=== PATIENT | female | born 1965 | race Caucasian/White ===

== ENCOUNTER 2022-11-09 14:30 | Outpatient (RCR) | payer OTHER, SELFPAY ==
--- NOTE | 2022-05-22 13:43 | ST.OP.ACL ---
Visit Care Team Role Provider Type Gema Armenta PA-C Attending Provider Non-Staff Family Provider Primary Care Provider Referring Provider Specialty: Medical Address: [facility] Shannan Mustafa, [facility] [address], [place], [address] Email: Adult Cognitive Linguistic Evaluation CHIEF WHARFINGER Adult Cognitive Linguistic Eval Start: 05/22/22 12:47 Freq: Status: Active Protocol: Document 05/22/22 12:47 CG (Rec: 05/22/22 13:42 CG [id number]) Adult Cognitive Linguistic Evaluation Session Time Visit Start Time 09:33 Visit Stop Time 10:38 Total Visit Minutes 65 Visit Information Visit Number 1 Plan of Care Dates 05/22/22-08/22/22 Insurance Information [place] Referral Referring Provider eGma Armenta PA-C Reason for Referral Aphasia following CVA Setting Assessment Location Outpatient Care Visit Type Note Type Initial evaluation Next Note Type Next Note Type Treatment Note Patient Information Identification Type Name Patient History Michelle is a pleasant 56 year old female who was admitted to the hospital on 04/29/22 for a stroke. Initially, she was unable to communicate at all and states she could not make sense of what I was thinking. Since her discharge from the hospital on 05/02/22, her speech has progressed such that she is now able to communicate basic wants and needs. 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 She reports that she uses some compensatory strategies at home, including description/ circumlocution and writing or texting rather than speaking in order to allow for more processing timw. She has been working through Aphasia workbooks at home that she ordered on [employer], and her daughter and niece state that she has a tendency to try to complete these exercises all day to the point of frustration. She also reports that her aphasia worsens later in the day. Though Michelle expresses frustration with her speech, she says that it does not cause embarassment because she is simply motivated to recover and push through the word-finding difficulties. 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 Mental Status Alert,Responsive,Cooperative Assessment Oral Motor Examination Completed No: Oral motor structure and function appear WFL for speech /swallowing Informal Assessment Receptive Language Normal Yes Receptive Language Impairment(s) Comprehension of simple yes/no questions,Comprehension of complex yes/no questions, Following 2-step commands, Picture/Object identification, Comprehension of conversation Expressive Language Normal No: Phonemic paraphasias Expressive Language Impairment(s) Imitation,Confrontation naming ,Expression of complex thoughts/ideas Pragmatic Language Normal Yes Speech Normal No Speech Impairment(s) Imprecise articulation Cognition Normal Yes Formal Assessment Standardized Test/Screener Type Quick Aphasia Battery (QAB) Administration Complete Results Both the Quick Aphasia Battery and the Naylor Naming Test ( Short Form) were completed. On the Quick Aphasia Battery, the patient scored as follows: Word comprehension -100% Sentence comprehension- 83.3% Word finding- 27.5% Grammatical construction- 57.5 % Speech motor programming- 0.00 % Repetition-66.7% Reading-45.8% QAB overall-5.76. The creators of the QAB indicate that scores between 5 .00?7.49 are considered moderate. On the Naylor Naming Test ( Short Form), the pt scored a 5 /15 (33%), with phonemic paraphasias present in 67% of items administered, Findings/Results Language Function Moderately-severely impaired Cognitive Function Within functional limits Findings Pt presents with moderate- severe aphasia. 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 The pt's speech is primarily characterized by phonemic paraphasias, dysfluency, and apraxia (motor planning deficits), though semantic paraphasias are also present. Cognitive Communication Deficits Self-awareness of Cognitive- Predictive awareness (able to Communication Deficits predict problem; impact of impairments) Impact on Functioning Activity Limits/Particip.Rest. Mild: General Tasks and Demands Household Tasks Sev: Interpersonal Interactions Education Employment Community Safety Risks Mild: Being Left Alone at Home Managing Medication Mod: Reacting to Emergency Traveling Alone in Community Prognosis Prognosis Good Based on Cognitive status,Family support,Time since onset,Other (comment) Comment High PLOF, age Plan of Care Speech-Language Treatment Yes Frequency 1-2x/week Duration 45 min Patient/Caregiver Education Described results of evaluation,Patient expressed understanding of evaluation, Patient expressed agreement with goals and treatment plans ,Family/caregivers expressed understanding of evaluation, Family/caregivers expressed agreement with goals and treatment plan,Patient requires further education/ training,Family/caregivers require further education/ training Short Term Goals 1. Pt and family will benefit from education regarding aphasia and stroke recovery. 2. Pt will complete exercises to facilitate word finding with 75% accuracy given minimal verbal cues. 3. Pt will complete confrontation naming tasks with 50% accuracy given maximal visual and verbal cues . Financial Analyst Goals Pt will complete confronation naming tasks with 80% accuracy independently. Pt will increase functional speech/language skills to WFL in order to communicate complex thoughts and ideas as well as basic wants/needs, and in order to return to OF. Discharge Recommendations Home
--- NOTE | 2022-05-22 13:43 | ST.OPPOC ---
Physical, Occupational & Speech Therapy At [facility] Visit Care Team Role Provider Type Gema Armenta PA-C Attending Provider Non-Staff Family Provider Primary Care Provider Referring Provider Address: [address], [place], [address] Speech Pathology Plan of Care Plan of Care Dates 05/22/22-08/22/22 Referring Provider Gema Armenta PA-C Patient History Michelle is a pleasant 56 year old female who was admitted to the hospital on 04/29/22 for a stroke. Initially, she was unable to communicate at all and states she could not make sense of what I was thinking. Since her discharge from the hospital on 05/02/22, her speech has progressed such that she is now able to communicate basic wants and needs. Her daughter and niece, who were present at her evaluation, stated that she frequently tries to say a word but uses the wrong sound (phonemic paraphasias). She reports that she uses some compensatory strategies at home, including description/circumlocution and writing or texting rather than speaking in order to allow for more processing timw. She has been working through Aphasia workbooks at home that she ordered on [employer], and her daughter and niece state that she has a tendency to try to complete these exercises all day to the point of frustration. She also reports that her aphasia worsens later in the day. Though Michelle expresses frustration with her speech, she says that it does not cause embarassment because she is simply motivated to recover and push through the word-finding difficulties. Self-awareness of Cognitive- Predictive awareness (abl Communication Deficits General Tasks and Demands Mild Household Tasks Mild Interpersonal Interactions Severe Education Severe Employment Severe Community Severe Being Left Alone at Home Mild Reacting to Emergency Moderate Managing Medication Mild Traveling Alone in Community Moderate Short Term Goals 1. Pt and family will benefit from education regarding aphasia and stroke recovery. 2. Pt will complete exercises to facilitate word finding with 75% accuracy given minimal verbal cues. 3. Pt will complete confrontation naming tasks with 50% accuracy given maximal visual and verbal cues. Nursing Home Goals Pt will complete confronation naming tasks with 80% accuracy independently. Pt will increase functional speech/language skills to WFL in order to communicate complex thoughts and ideas as well as basic wants/needs, and in order to return to [facility]. Comment: Electronically Signed by: ANU James 05/22/22 [id number] If you are in agreement with this Plan of Care, please return a signed and dated copy. I have reviewed this Plan of Care and certify that the skilled therapy services above are required to meet the patient?s needs. Physician Signature Date Printed Name and Credentials Clinical Instructor Signature Printed Name and Credentials
--- NOTE | 2022-06-02 16:30 | ST.OPTN ---
Visit Care Team Role Provider Type Gema Armenta PA-C Attending Provider Non-Staff Family Provider Primary Care Provider Referring Provider Address: [facility] Shannan Mustafa, [address] [address], [place], [address] UTILIZATION ENGINEER Treatment Note UTILIZATION ENGINEER Treatment Note Start: 06/02/22 16:17 Freq: Status: Active Protocol: Document 06/02/22 16:17 CG (Rec: 06/02/22 16:30 CG [id number]) Speech Pathology Treatment Note Session Time Visit Start Time 15:30 Visit Stop Time 16:15 Total Visit Minutes 45 Visit Information Plan of Care Dates 05/22/22-08/22/22 Setting Treatment Setting Outpatient Care Next Note Type Next Note Type Treatment Note General Information Patient History Michelle is a pleasant 56 year old female who was admitted to the hospital on 04/29/22 for a stroke. Initially, she was unable to communicate at all and states she could not make sense of what I was thinking. Since her discharge from the hospital on 05/02/22, her speech has progressed such that she is now able to communicate basic wants and needs. 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 She reports that she uses some compensatory strategies at home, including description/ circumlocution and writing or texting rather than speaking in order to allow for more processing timw. She has been working through Aphasia workbooks at home that she ordered on [employer], and her daughter and niece state that she has a tendency to try to complete these exercises all day to the point of frustration. She also reports that her aphasia worsens later in the day. Though Michelle expresses frustration with her speech, she says that it does not cause embarassment because she is simply motivated to recover and push through the word-finding difficulties. Subjective Identification Type Name Observations/Patient Presentation Pt attended the session with her daughter, who remained present throughout. She appeared well and was alert, oriented, and cooperative. Chief Complaint(s) Language Patient Knowledge/Awareness of UTILIZATION ENGINEER Role Excellent in Treatment Objective Short Term Goals 1. Pt and family will benefit from education regarding aphasia and stroke recovery. 2. Pt will complete exercises to facilitate word finding with 75% accuracy given minimal verbal cues. 3. Pt will complete confrontation naming tasks with 50% accuracy given maximal visual and verbal cues . Longterm Goals Pt will complete confronation naming tasks with 80% accuracy independently. Pt will increase functional speech/language skills to WFL in order to communicate complex thoughts and ideas as well as basic wants/needs, and in order to return to PLOF. Treatment Activities Session initiated with UTILIZATION ENGINEER providing communication partner training and providing literature re communication partner tips. UTILIZATION ENGINEER introduced [employer]a shirin for pt to use for home practice, and explained graded cueing heirarchy. Additionally, began instruction in Phonological Component Analysis (OPERATING ROOM MANAGER) for word- finding. Gave recommendations for home practice and self- cueing at home, including using a whiteboard and dry erase marker to self-cue words and decrease frustration. Additionally, advised pt to begin using [employer] shirin for home practice. Assessment Patient Response to Treatment Excellent Rehab Potential Excellent Impairments Identified Expressive language Progress Towards Goals Excellent Progress Assessment of Overall Progress Improving Assessment of Improvement Pt's connected speech already appears improved since initial evaluation, likely resulting from a mixture of spontaneous recovery and home practice. She was able to complete confrontation OPERATING ROOM MANAGER activities with approximately 50% accuracy given minimal verbal cues, increasing to 75% accuracy given moderate cues. She expressed compliance with home exercise program and use of whiteboard to self-cue. Pt's daughter expressed understanding of communication partner training. Reviewed with Patient Progress Being Made,Home Exercise Program Patient/Caregiver Understanding Excellent Plan Amount of Therapy Recommended 3-4 Months Frequency of Treatment Twice a Week Length of Session 45 Minutes Treatment Emphasis Next Session Continue OPERATING ROOM MANAGER Therapeutic Contents Expressive Language Training Additional Areas of Treatment Family education/training Provided Patient/Caregiver Instruction Home Exercise Program Therapy Recommendations Continue with Current Program
--- NOTE | 2022-06-09 17:13 | ST.OPTN ---
Visit Care Team Role Provider Type Gema Armenta PA-C Attending Provider Non-Staff Family Provider Primary Care Provider Referring Provider Address: [facility] Shannan Mustafa, [address] [address], [place], [address] MENTAL HEALTH ORDERLY Treatment Note MENTAL HEALTH ORDERLY Treatment Note Start: 06/02/22 16:17 Freq: Status: Active Protocol: Document 06/09/22 16:25 CG (Rec: 06/09/22 16:31 CG [id number]) Speech Pathology Treatment Note Session Time Visit Start Time 15:30 Visit Stop Time 16:23 Total Visit Minutes 53 Visit Information Plan of Care Dates 05/22/22-08/22/22 Setting Treatment Setting Outpatient Care Next Note Type Next Note Type Treatment Note General Information Patient History Michelle is a pleasant 56 year old female who was admitted to the hospital on 04/29/22 for a stroke. Initially, she was unable to communicate at all and states she could not make sense of what I was thinking. Since her discharge from the hospital on 05/02/22, her speech has progressed such that she is now able to communicate basic wants and needs. 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 She reports that she uses some compensatory strategies at home, including description/ circumlocution and writing or texting rather than speaking in order to allow for more processing timw. She has been working through Aphasia workbooks at home that she ordered on [employer], and her daughter and niece state that she has a tendency to try to complete these exercises all day to the point of frustration. She also reports that her aphasia worsens later in the day. Though Michelle expresses frustration with her speech, she says that it does not cause embarassment because she is simply motivated to recover and push through the word-finding difficulties. Subjective Identification Type Name Observations/Patient Presentation Pt attended the session with her sister, who remained present throughout. She appeared well and was alert, oriented, and cooperative. Chief Complaint(s) Language Patient Knowledge/Awareness of MENTAL HEALTH ORDERLY Role Excellent in Treatment Objective Short Term Goals 1. Pt and family will benefit from education regarding aphasia and stroke recovery. 2. Pt will complete exercises to facilitate word finding with 75% accuracy given minimal verbal cues. 3. Pt will complete confrontation naming tasks with 50% accuracy given maximal visual and verbal cues . Manager Occupational Goals Pt will complete confronation naming tasks with 80% accuracy independently. Pt will increase functional speech/language skills to WFL in order to communicate complex thoughts and ideas as well as basic wants/needs, and in order to return to PLOF. Treatment Activities MENTAL HEALTH ORDERLY initiated session with check-in of at-home practice. Pt states she is using the Mintigo shirin everyday for practice. She states she uses a whiteboard at home for self- cueing and for decreasing frustration during communication. Continued instruction in Phonological Component Analysis (PRINTER APPRENTICE) for word-finding, followed by confrontation naming of practiced words. Initiated instruction in Semantic Feature Analysis (SFA) for word-finding via strengthened semantic network. Assessment Patient Response to Treatment Excellent Rehab Potential Excellent Impairments Identified Expressive language Progress Towards Goals Excellent Progress Assessment of Overall Progress Improving Assessment of Improvement Pt's connected speech continues to improve based on MENTAL HEALTH ORDERLY observation. She was able to complete confrontation naming following PRINTER APPRENTICE activities with 86% accuracy independently. She completed SFA activities with approximately 50% accuracy independently. She expressed compliance with home exercise program and use of whiteboard to self-cue. Additionally, she followed up with PCP regarding lack of sleep and will be adding melatonin at night with the goal of improving sleep quality/ duration. Reviewed with Patient Progress Being Made,Home Exercise Program Patient/Caregiver Understanding Excellent Plan Amount of Therapy Recommended 3-4 Months Frequency of Treatment Twice a Week Length of Session 45 Minutes Treatment Emphasis Next Session Continue PRINTER APPRENTICE Therapeutic Contents Expressive Language Training Additional Areas of Treatment Family education/training Provided Patient/Caregiver Instruction Home Exercise Program Therapy Recommendations Continue with Current Program
--- NOTE | 2022-06-16 17:22 | ST.OPTN ---
Visit Care Team Role Provider Type Gema Armenta PA-C Attending Provider Non-Staff Family Provider Primary Care Provider Referring Provider Address: [facility] Shannan Mustafa, [address] [address], [place], [address] FINANCIAL DIRECTOR Treatment Note FINANCIAL DIRECTOR Treatment Note Start: 06/02/22 16:17 Freq: Status: Active Protocol: Document 06/16/22 16:18 CG (Rec: 06/16/22 16:23 CG [id number]) Speech Pathology Treatment Note Session Time Visit Start Time 09:30 Visit Stop Time 10:15 Total Visit Minutes 45 Visit Information Visit Number 5 Plan of Care Dates 05/22/22-08/22/22 Setting Treatment Setting Outpatient Care Next Note Type Next Note Type Treatment Note General Information Patient History Michelle is a pleasant 56 year old female who was admitted to the hospital on 04/29/22 for a stroke. Initially, she was unable to communicate at all and states she could not make sense of what I was thinking. Since her discharge from the hospital on 05/02/22, her speech has progressed such that she is now able to communicate basic wants and needs. 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 She reports that she uses some compensatory strategies at home, including description/ circumlocution and writing or texting rather than speaking in order to allow for more processing timw. She has been working through Aphasia workbooks at home that she ordered on [employer], and her daughter and niece state that she has a tendency to try to complete these exercises all day to the point of frustration. She also reports that her aphasia worsens later in the day. Though Michelle expresses frustration with her speech, she says that it does not cause embarassment because she is simply motivated to recover and push through the word-finding difficulties. Subjective Identification Type Name Observations/Patient Presentation Pt attended the session with her daughters, who remained present throughout. She appeared well and was alert, oriented, and cooperative. She states she did get good sleep last night, but will be discontinuing melatonin because it was causing strange dreams. Pt was encouraged to continue collaborating with her doctor regarding sleep. Chief Complaint(s) Language Patient Knowledge/Awareness of FINANCIAL DIRECTOR Role Excellent in Treatment Objective Short Term Goals 1. Pt and family will benefit from education regarding aphasia and stroke recovery. 2. Pt will complete exercises to facilitate word finding with 75% accuracy given minimal verbal cues. 3. Pt will complete confrontation naming tasks with 50% accuracy given maximal visual and verbal cues . Preservationist Goals Pt will complete confronation naming tasks with 80% accuracy independently. Pt will increase functional speech/language skills to WFL in order to communicate complex thoughts and ideas as well as basic wants/needs, and in order to return to [facility]. Treatment Activities Continued instruction in Semantic Feature Analysis (SFA ) for word-finding via strengthened semantic network, with graded cueing for word- finding including the use of whiteboard and first letter for self-cue. Additionally, FINANCIAL DIRECTOR provided syllable-by- syllable cues for target words due to pt difficulty with multisyllabic words, which reduced frustration and facilitated word retrieval. Sentence completion task with semantic cues were completed. Provided continued counseling regarding pursuing outside tx for sleep disturbances. Assessment Patient Response to Treatment Excellent Rehab Potential Excellent Impairments Identified Expressive language Progress Towards Goals Excellent Progress Assessment of Overall Progress Improving Assessment of Improvement Pt's connected speech continues to improve based on FINANCIAL DIRECTOR observation, with pt only pausing once or twice during a fluent conversation at the beginning of the session today . She completed SFA activities with approximately 80% accuracy today given minimal verbal cues. After SFA activities, she completed confrontation naming activities given semantic cues (fill in the blank sentences) with 85% (34/40) accuracy independently. She expressed compliance with home exercise program and use of whiteboard to self-cue, and is continuing [employer] shirin. Reviewed with Patient Progress Being Made,Home Exercise Program Patient/Caregiver Understanding Excellent Plan Amount of Therapy Recommended 3-4 Months Frequency of Treatment Twice a Week Length of Session 45 Minutes Treatment Emphasis Next Session Continue CIVIL DEFENSE DIRECTOR and SFA Therapeutic Contents Expressive Language Training Provided Patient/Caregiver Instruction Home Exercise Program Therapy Recommendations Continue with Current Program
--- NOTE | 2022-06-19 10:51 | ST.OPTN ---
Visit Care Team Role Provider Type Gema Armenta PA-C Attending Provider Non-Staff Family Provider Primary Care Provider Referring Provider Address: [facility] Shannan Mustafa, [address] [address], [place], [address] HABILITATIVE INTERVENTIONIST Treatment Note HABILITATIVE INTERVENTIONIST Treatment Note Start: 06/02/22 16:17 Freq: Status: Active Protocol: Document 06/19/22 10:45 CG (Rec: 06/19/22 10:51 CG [id number]) Speech Pathology Treatment Note Session Time Visit Start Time 09:30 Visit Stop Time 10:22 Total Visit Minutes 52 Visit Information Visit Number 6 Plan of Care Dates 05/22/22-08/22/22 Setting Treatment Setting Outpatient Care Next Note Type Next Note Type Treatment Note General Information Patient History Michelle is a pleasant 56 year old female who was admitted to the hospital on 04/29/22 for a stroke. Initially, she was unable to communicate at all and states she could not make sense of what I was thinking. Since her discharge from the hospital on 05/02/22, her speech has progressed such that she is now able to communicate basic wants and needs. 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 She reports that she uses some compensatory strategies at home, including description/ circumlocution and writing or texting rather than speaking in order to allow for more processing timw. She has been working through Aphasia workbooks at home that she ordered on [employer], and her daughter and niece state that she has a tendency to try to complete these exercises all day to the point of frustration. She also reports that her aphasia worsens later in the day. Though Michelle expresses frustration with her speech, she says that it does not cause embarassment because she is simply motivated to recover and push through the word-finding difficulties. Subjective Identification Type Name Observations/Patient Presentation Pt attended the session independently today after being dropped off by her brother in law. She was alert , oriented, pleasant, and cooperative throughout the session. Chief Complaint(s) Language Patient Knowledge/Awareness of HABILITATIVE INTERVENTIONIST Role Excellent in Treatment Objective Short Term Goals 1. Pt and family will benefit from education regarding aphasia and stroke recovery. 2. Pt will complete exercises to facilitate word finding with 75% accuracy given minimal verbal cues. 3. Pt will complete confrontation naming tasks with 50% accuracy given maximal visual and verbal cues . Career Specialist Goals Pt will complete confronation naming tasks with 80% accuracy independently. Pt will increase functional speech/language skills to WFL in order to communicate complex thoughts and ideas as well as basic wants/needs, and in order to return to PLOF. Treatment Activities Assessed progress with Short Form of [place] Naming Test as progress monitoring probe. Continued instruction in Semantic Feature Analysis (SFA ) for word-finding via strengthened semantic network, with graded cueing for word- finding including the use of whiteboard and first letter for self-cue. Additionally, HABILITATIVE INTERVENTIONIST provided syllable-by- syllable cues for target words due to pt difficulty with multisyllabic words, which reduced frustration and facilitated word retrieval. Assessment Patient Response to Treatment Excellent Rehab Potential Excellent Impairments Identified Expressive language Progress Towards Goals Excellent Progress Assessment of Overall Progress Improving Assessment of Improvement Pt's score on Short Form of [place] Naming test increased from 5/15 at evaluation to 7/ 15 this date. Additionally, the test took a much shorter amount of time to complete than during evaluation, as the pt was able to produce target words with many fewer cues this date. This improvement is not reflected in the numerical score, but does have significant implications for reducing frustration and increasing QOL. Pt's connected speech continues to improve based on HABILITATIVE INTERVENTIONIST observation. Pt completed SFA activities with 67% accuracy independently, increasing to 87% accuracy given minimal visual cues. She expressed continued compliance with home exercise program and use of whiteboard to self-cue. Reviewed with Patient Progress Being Made,Home Exercise Program Patient/Caregiver Understanding Excellent Plan Amount of Therapy Recommended 3-4 Months Frequency of Treatment Twice a Week Length of Session 45 Minutes Treatment Emphasis Next Session Continue SHIFT FOREMAN and SFA Therapeutic Contents Expressive Language Training Provided Patient/Caregiver Instruction Home Exercise Program Therapy Recommendations Continue with Current Program
--- NOTE | 2022-06-23 16:27 | ST.OPTN ---
Visit Care Team Role Provider Type Gema Armenta PA-C Attending Provider Non-Staff Family Provider Primary Care Provider Referring Provider Address: [facility] Shannan Mustafa, [address] [address], [place], [address] COMMERCIAL PARTS PROFESSIONAL Treatment Note COMMERCIAL PARTS PROFESSIONAL Treatment Note Start: 06/02/22 16:17 Freq: Status: Active Protocol: Document 06/23/22 16:23 CG (Rec: 06/23/22 16:27 CG [id number]) Speech Pathology Treatment Note Session Time Visit Start Time 09:30 Visit Stop Time 10:22 Total Visit Minutes 52 Visit Information Visit Number 7 Plan of Care Dates 05/22/22-08/22/22 Setting Treatment Setting Outpatient Care Next Note Type Next Note Type Treatment Note General Information Patient History Michelle is a pleasant 56 year old female who was admitted to the hospital on 04/29/22 for a stroke. Initially, she was unable to communicate at all and states she could not make sense of what I was thinking. Since her discharge from the hospital on 05/02/22, her speech has progressed such that she is now able to communicate basic wants and needs. 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 She reports that she uses some compensatory strategies at home, including description/ circumlocution and writing or texting rather than speaking in order to allow for more processing timw. She has been working through Aphasia workbooks at home that she ordered on [employer], and her daughter and niece state that she has a tendency to try to complete these exercises all day to the point of frustration. She also reports that her aphasia worsens later in the day. Though Michelle expresses frustration with her speech, she says that it does not cause embarassment because she is simply motivated to recover and push through the word-finding difficulties. Subjective Identification Type Name Observations/Patient Presentation Pt attended the session independently today after being dropped off by her daughter. She was alert, oriented, pleasant, and cooperative throughout the session. Chief Complaint(s) Language Patient Knowledge/Awareness of COMMERCIAL PARTS PROFESSIONAL Role Excellent in Treatment Objective Short Term Goals 1. Pt and family will benefit from education regarding aphasia and stroke recovery. 2. Pt will complete exercises to facilitate word finding with 75% accuracy given minimal verbal cues. 3. Pt will complete confrontation naming tasks with 50% accuracy given maximal visual and verbal cues . Long-Term Goals Pt will complete confronation naming tasks with 80% accuracy independently. Pt will increase functional speech/language skills to WFL in order to communicate complex thoughts and ideas as well as basic wants/needs, and in order to return to PLOF. Treatment Activities Continued instruction in Semantic Feature Analysis (SFA ) for word-finding via strengthened semantic network, with graded cueing for word- finding including the use of whiteboard and first letter for self-cue. Additionally, COMMERCIAL PARTS PROFESSIONAL provided syllable-by- syllable cues for target words due to pt difficulty with multisyllabic words, which reduced frustration and facilitated word retrieval. Encouraged visualization of first letter as a strategy to facilitate accurate motor planning. Assessment Patient Response to Treatment Excellent Rehab Potential Excellent Impairments Identified Expressive language Progress Towards Goals Excellent Progress Assessment of Overall Progress Improving Assessment of Improvement Pt's connected speech continues to improve based on COMMERCIAL PARTS PROFESSIONAL observation. Pt completed SFA activities with 82% accuracy independently, increasing to 97% accuracy given minimal visual cues, demonstrating a continued improvement since treatment initiated. She expressed continued compliance with home exercise program and use of whiteboard to self-cue. She states she is still frustrated and wants to fix [her] brain , but acknowledges she has come a long way in the two months since her stroke. Reviewed with Patient Progress Being Made,Home Exercise Program Patient/Caregiver Understanding Excellent Plan Amount of Therapy Recommended 3-4 Months Frequency of Treatment Twice a Week Length of Session 45 Minutes Treatment Emphasis Next Session Continue PRESSURE TESTER and SFA Therapeutic Contents Expressive Language Training Provided Patient/Caregiver Instruction Home Exercise Program Therapy Recommendations Continue with Current Program
--- NOTE | 2022-06-26 10:49 | ST.OPTN ---
Visit Care Team Role Provider Type Gema Armenta PA-C Attending Provider Non-Staff Family Provider Primary Care Provider Referring Provider Address: [facility] Shannan Mustafa, [address] [address], [place], [address] FOREIGN COLLECTION CLERK Treatment Note FOREIGN COLLECTION CLERK Treatment Note Start: 06/02/22 16:17 Freq: Status: Active Protocol: Document 06/26/22 10:45 CG (Rec: 06/26/22 10:49 CG [id number]) Speech Pathology Treatment Note Session Time Visit Start Time 09:30 Visit Stop Time 10:22 Total Visit Minutes 52 Visit Information Visit Number 8 Plan of Care Dates 05/22/22-08/22/22 Setting Treatment Setting Outpatient Care Next Note Type Next Note Type Treatment Note General Information Patient History Michelle is a pleasant 56 year old female who was admitted to the hospital on 04/29/22 for a stroke. Initially, she was unable to communicate at all and states she could not make sense of what I was thinking. Since her discharge from the hospital on 05/02/22, her speech has progressed such that she is now able to communicate basic wants and needs. 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 She reports that she uses some compensatory strategies at home, including description/ circumlocution and writing or texting rather than speaking in order to allow for more processing timw. She has been working through Aphasia workbooks at home that she ordered on [employer], and her daughter and niece state that she has a tendency to try to complete these exercises all day to the point of frustration. She also reports that her aphasia worsens later in the day. Though Michelle expresses frustration with her speech, she says that it does not cause embarassment because she is simply motivated to recover and push through the word-finding difficulties. Subjective Identification Type Name Observations/Patient Presentation Pt attended the session independently today after being dropped off by her friend. She was alert, oriented, pleasant, and cooperative throughout the session. Chief Complaint(s) Language Patient Knowledge/Awareness of FOREIGN COLLECTION CLERK Role Excellent in Treatment Objective Short Term Goals 1. Pt and family will benefit from education regarding aphasia and stroke recovery. 2. Pt will complete exercises to facilitate word finding with 75% accuracy given minimal verbal cues. 3. Pt will complete confrontation naming tasks with 50% accuracy given maximal visual and verbal cues . Snf Goals Pt will complete confronation naming tasks with 80% accuracy independently. Pt will increase functional speech/language skills to WFL in order to communicate complex thoughts and ideas as well as basic wants/needs, and in order to return to PLOF. Treatment Activities Word description game to promote use of semantic network for functionl language . Continued instruction in Semantic Feature Analysis (SFA ) for word-finding via strengthened semantic network, with graded cueing for word- finding including the use of whiteboard and first letter for self-cue. Additionally, FOREIGN COLLECTION CLERK provided syllable-by- syllable cues for target words due to pt difficulty with multisyllabic words, which reduced frustration and facilitated word retrieval. Assessment Patient Response to Treatment Excellent Rehab Potential Excellent Impairments Identified Expressive language Progress Towards Goals Excellent Progress Assessment of Overall Progress Improving Assessment of Improvement Pt's connected speech continues to improve based on FOREIGN COLLECTION CLERK observation. Pt completed SFA activities with 78% accuracy independently, increasing to 100% accuracy given minimal visual cues, demonstrating a sustained improvement since treatment initiated. Confrontation naming of everyday items was completed with 78% accuracy independently, increasing to 93% accuracy given mod visual and verbal cues. Overall, pt's word finding, motor planning, and overall communicative abilities continue to improve. Reviewed with Patient Progress Being Made Patient/Caregiver Understanding Excellent Plan Amount of Therapy Recommended 3-4 Months Frequency of Treatment Twice a Week Length of Session 45 Minutes Treatment Emphasis Next Session Continue PROCUREMENT SERVICES MANAGER and SFA Therapeutic Contents Expressive Language Training Provided Patient/Caregiver Instruction Home Exercise Program Therapy Recommendations Continue with Current Program
--- NOTE | 2022-07-03 11:46 | ST.OPTN ---
Visit Care Team Role Provider Type Gema Armenta PA-C Attending Provider Non-Staff Family Provider Primary Care Provider Referring Provider Address: [facility] Shannan Mustafa, [address] [address], [place], [address] THIRD COOK Treatment Note THIRD COOK Treatment Note Start: 06/02/22 16:17 Freq: Status: Active Protocol: Document 06/30/22 11:29 CG (Rec: 07/03/22 11:35 CG [id number]) Speech Pathology Treatment Note Session Time Visit Start Time 15:30 Visit Stop Time 16:15 Total Visit Minutes 45 Visit Information Visit Number 9 Plan of Care Dates 05/22/22-08/22/22 Setting Treatment Setting Outpatient Care Visit Type Note Type Treatment Note Next Note Type Next Note Type Treatment Note General Information Patient History Michelle is a pleasant 56 year old female who was admitted to the hospital on 04/29/22 for a stroke. Initially, she was unable to communicate at all and states she could not make sense of what I was thinking. Since her discharge from the hospital on 05/02/22, her speech has progressed such that she is now able to communicate basic wants and needs. 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 She reports that she uses some compensatory strategies at home, including description/ circumlocution and writing or texting rather than speaking in order to allow for more processing timw. She has been working through Aphasia workbooks at home that she ordered on [employer], and her daughter and niece state that she has a tendency to try to complete these exercises all day to the point of frustration. She also reports that her aphasia worsens later in the day. Though Michelle expresses frustration with her speech, she says that it does not cause embarassment because she is simply motivated to recover and push through the word-finding difficulties. Subjective Identification Type Name Observations/Patient Presentation Pt attended the session independently with her daughter. She was alert, oriented, pleasant, and cooperative throughout the session. Chief Complaint(s) Language Patient Knowledge/Awareness of THIRD COOK Role Excellent in Treatment Objective Short Term Goals 1. Pt and family will benefit from education regarding aphasia and stroke recovery. 2. Pt will complete exercises to facilitate word finding with 75% accuracy given minimal verbal cues. 3. Pt will complete confrontation naming tasks with 50% accuracy given maximal visual and verbal cues . Polysomnograph Tech Goals Pt will complete confronation naming tasks with 80% accuracy independently. Pt will increase functional speech/language skills to WFL in order to communicate complex thoughts and ideas as well as basic wants/needs, and in order to return to PLOF. Treatment Activities Word description game to promote use of semantic network for functionl language . Continued instruction in Semantic Feature Analysis (SFA ) for word-finding via strengthened semantic network, with graded cueing for word- finding including the use of whiteboard and first letter for self-cue. Additionally, THIRD COOK provided syllable-by- syllable cues for target words due to pt difficulty with multisyllabic words, which reduced frustration and facilitated word retrieval. Assessment Patient Response to Treatment Excellent Rehab Potential Excellent Impairments Identified Expressive language Progress Towards Goals Excellent Progress Assessment of Overall Progress Improving Assessment of Improvement Pt's connected speech continues to improve based on THIRD COOK observation. Pt completed SFA activities with 78% accuracy independently, increasing to 100% accuracy given minimal visual cues, demonstrating a sustained improvement since treatment initiated. Confrontation naming of everyday items was completed with 78% accuracy independently, increasing to 93% accuracy given mod visual and verbal cues. Overall, pt's word finding, motor planning, and overall communicative abilities continue to improve. Reviewed with Patient Progress Being Made Patient/Caregiver Understanding Excellent Plan Amount of Therapy Recommended 3-4 Months Frequency of Treatment Twice a Week Length of Session 45 Minutes Treatment Emphasis Next Session Continue PUMP STITCHER and SFA Therapeutic Contents Expressive Language Training Provided Patient/Caregiver Instruction Home Exercise Program Therapy Recommendations Continue with Current Program
--- NOTE | 2022-07-03 11:49 | ST.OPTN ---
Visit Care Team Role Provider Type Gema Armenta PA-C Attending Provider Non-Staff Family Provider Primary Care Provider Referring Provider Address: [facility] Shannan Mustafa, [address] [address], [place], [address] PHYSICIAN OFFICE REP Treatment Note PHYSICIAN OFFICE REP Treatment Note Start: 06/02/22 16:17 Freq: Status: Active Protocol: Document 07/03/22 11:46 CG (Rec: 07/03/22 11:49 CG [id number]) Speech Pathology Treatment Note Session Time Visit Start Time 09:32 Visit Stop Time 10:22 Total Visit Minutes 50 Visit Information Visit Number 10 Plan of Care Dates 05/22/22-08/22/22 Setting Treatment Setting Outpatient Care Visit Type Note Type Treatment Note Next Note Type Next Note Type Treatment Note General Information Patient History Michelle is a pleasant 56 year old female who was admitted to the hospital on 04/29/22 for a stroke. Initially, she was unable to communicate at all and states she could not make sense of what I was thinking. Since her discharge from the hospital on 05/02/22, her speech has progressed such that she is now able to communicate basic wants and needs. 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 She reports that she uses some compensatory strategies at home, including description/ circumlocution and writing or texting rather than speaking in order to allow for more processing timw. She has been working through Aphasia workbooks at home that she ordered on [employer], and her daughter and niece state that she has a tendency to try to complete these exercises all day to the point of frustration. She also reports that her aphasia worsens later in the day. Though Michelle expresses frustration with her speech, she says that it does not cause embarassment because she is simply motivated to recover and push through the word-finding difficulties. Subjective Identification Type Name Observations/Patient Presentation Pt attended the session independently with her daughter. She was alert, oriented, pleasant, and cooperative throughout the session. Chief Complaint(s) Language Patient Knowledge/Awareness of PHYSICIAN OFFICE REP Role Excellent in Treatment Objective Short Term Goals 1. Pt and family will benefit from education regarding aphasia and stroke recovery. 2. Pt will complete exercises to facilitate word finding with 75% accuracy given minimal verbal cues. 3. Pt will complete confrontation naming tasks with 50% accuracy given maximal visual and verbal cues . Snf Goals Pt will complete confronation naming tasks with 80% accuracy independently. Pt will increase functional speech/language skills to WFL in order to communicate complex thoughts and ideas as well as basic wants/needs, and in order to return to PLOF. Treatment Activities Word description game to promote use of semantic network for functionl language . Continued instruction in Semantic Feature Analysis (SFA ) for word-finding via strengthened semantic network, with graded cueing for word- finding including the use of whiteboard and first letter for self-cue. Additionally, PHYSICIAN OFFICE REP provided syllable-by- syllable cues for target words due to pt difficulty with multisyllabic words, which reduced frustration and facilitated word retrieval. Assessment Patient Response to Treatment Excellent Rehab Potential Excellent Impairments Identified Expressive language Progress Towards Goals Excellent Progress Assessment of Overall Progress Improving Assessment of Improvement Pt's connected speech continues to improve based on PHYSICIAN OFFICE REP observation. Pt completed SFA activities with 73% accuracy independently, increasing to 92% accuracy given minimal visual cues, demonstrating a sustained improvement since treatment initiated. Confrontation naming of everyday items was completed with approximately 50% accuracy this date. Pt's performance today was likely impacted by lack of sleep. Pt states she frequently struggles to get more than 2-3 hours of sleep, and notices the change in her language abilities after a night of little sleep. Reviewed with Patient Progress Being Made Patient/Caregiver Understanding Excellent Plan Amount of Therapy Recommended 3-4 Months Frequency of Treatment Twice a Week Length of Session 45 Minutes Treatment Emphasis Next Session Continue MEDICAL ART THERAPIST and SFA Therapeutic Contents Expressive Language Training Provided Patient/Caregiver Instruction Home Exercise Program Therapy Recommendations Continue with Current Program
--- NOTE | 2022-07-07 16:28 | ST.OPTN ---
Visit Care Team Role Provider Type Gema Armenta PA-C Attending Provider Non-Staff Family Provider Primary Care Provider Referring Provider Address: [facility] Shannan Mustafa, [address] [address], [place], [address] ELECTRICAL TESTER BATTERY Treatment Note ELECTRICAL TESTER BATTERY Treatment Note Start: 06/02/22 16:17 Freq: Status: Active Protocol: Document 07/07/22 16:26 CG (Rec: 07/07/22 16:28 CG [id number]) Speech Pathology Treatment Note Session Time Visit Start Time 15:35 Visit Stop Time 16:25 Total Visit Minutes 50 Visit Information Visit Number 11 Plan of Care Dates 05/22/22-08/22/22 Setting Treatment Setting Outpatient Care Visit Type Note Type Treatment Note Next Note Type Next Note Type Treatment Note General Information Patient History Michelle is a pleasant 56 year old female who was admitted to the hospital on 04/29/22 for a stroke. Initially, she was unable to communicate at all and states she could not make sense of what I was thinking. Since her discharge from the hospital on 05/02/22, her speech has progressed such that she is now able to communicate basic wants and needs. 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 She reports that she uses some compensatory strategies at home, including description/ circumlocution and writing or texting rather than speaking in order to allow for more processing timw. She has been working through Aphasia workbooks at home that she ordered on [employer], and her daughter and niece state that she has a tendency to try to complete these exercises all day to the point of frustration. She also reports that her aphasia worsens later in the day. Though Michelle expresses frustration with her speech, she says that it does not cause embarassment because she is simply motivated to recover and push through the word-finding difficulties. Subjective Identification Type Name Observations/Patient Presentation Pt attended the session independently with her daughter. She was alert, oriented, pleasant, and cooperative throughout the session. Chief Complaint(s) Language Patient Knowledge/Awareness of ELECTRICAL TESTER BATTERY Role Excellent in Treatment Objective Short Term Goals 1. Pt and family will benefit from education regarding aphasia and stroke recovery. 2. Pt will complete exercises to facilitate word finding with 75% accuracy given minimal verbal cues. 3. Pt will complete confrontation naming tasks with 50% accuracy given maximal visual and verbal cues . Fdc Goals Pt will complete confronation naming tasks with 80% accuracy independently. Pt will increase functional speech/language skills to WFL in order to communicate complex thoughts and ideas as well as basic wants/needs, and in order to return to PLOF. Treatment Activities Continued instruction in Semantic Feature Analysis (SFA ) for word-finding via strengthened semantic network, with graded cueing for word- finding including the use of whiteboard and first letter for self-cue. Additionally, ELECTRICAL TESTER BATTERY provided syllable-by- syllable cues for target words due to pt difficulty with multisyllabic words, which reduced frustration and facilitated word retrieval. Assessment Patient Response to Treatment Excellent Rehab Potential Excellent Impairments Identified Expressive language Progress Towards Goals Excellent Progress Assessment of Overall Progress Improving Assessment of Improvement Pt's connected speech continues to improve based on ELECTRICAL TESTER BATTERY observation. Pt completed SFA activities with 71% accuracy independently, increasing to 88% accuracy given minimal visual cues, demonstrating a sustained improvement since treatment initiated. Confrontation naming of everyday items was completed with 100% accuracy this date following SFA activities. Reviewed with Patient Progress Being Made Patient/Caregiver Understanding Excellent Plan Amount of Therapy Recommended 3-4 Months Frequency of Treatment Twice a Week Length of Session 45 Minutes Treatment Emphasis Next Session Continue CLIENT COORDINATOR and SFA Therapeutic Contents Expressive Language Training Provided Patient/Caregiver Instruction Home Exercise Program Therapy Recommendations Continue with Current Program
--- NOTE | 2022-07-10 10:28 | ST.OPTN ---
Visit Care Team Role Provider Type Gema Armenta PA-C Attending Provider Non-Staff Family Provider Primary Care Provider Referring Provider Address: [facility] Shannan Mustafa, [address] [address], [place], [address] END TOUCHING MACHINE OPERATOR Treatment Note END TOUCHING MACHINE OPERATOR Treatment Note Start: 06/02/22 16:17 Freq: Status: Active Protocol: Document 07/10/22 10:23 CG (Rec: 07/10/22 10:28 CG [id number]) Speech Pathology Treatment Note Session Time Visit Start Time 09:30 Visit Stop Time 10:18 Total Visit Minutes 48 Visit Information Visit Number 12 Plan of Care Dates 05/22/22-08/22/22 Setting Treatment Setting Outpatient Care Visit Type Note Type Treatment Note Next Note Type Next Note Type Treatment Note General Information Patient History Michelle is a pleasant 56 year old female who was admitted to the hospital on 04/29/22 for a stroke. Initially, she was unable to communicate at all and states she could not make sense of what I was thinking. Since her discharge from the hospital on 05/02/22, her speech has progressed such that she is now able to communicate basic wants and needs. 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 She reports that she uses some compensatory strategies at home, including description/ circumlocution and writing or texting rather than speaking in order to allow for more processing timw. She has been working through Aphasia workbooks at home that she ordered on [employer], and her daughter and niece state that she has a tendency to try to complete these exercises all day to the point of frustration. She also reports that her aphasia worsens later in the day. Though Michelle expresses frustration with her speech, she says that it does not cause embarassment because she is simply motivated to recover and push through the word-finding difficulties. Subjective Identification Type Name Observations/Patient Presentation Pt attended the session independently. She was alert, oriented, pleasant, and cooperative throughout the session. Chief Complaint(s) Language Patient Knowledge/Awareness of END TOUCHING MACHINE OPERATOR Role Excellent in Treatment Objective Short Term Goals 1. Pt and family will benefit from education regarding aphasia and stroke recovery. 2. Pt will complete exercises to facilitate word finding with 75% accuracy given minimal verbal cues. 3. Pt will complete confrontation naming tasks with 50% accuracy given maximal visual and verbal cues . Fpc Goals Pt will complete confronation naming tasks with 80% accuracy independently. Pt will increase functional speech/language skills to WFL in order to communicate complex thoughts and ideas as well as basic wants/needs, and in order to return to PLOF. Treatment Activities Continued instruction in Semantic Feature Analysis (SFA ) for word-finding via strengthened semantic network, with graded cueing for word- finding including the use of whiteboard and first letter for self-cue. Began attempting more specific vocabulary today, including explaining how various small appliances work in the home. END TOUCHING MACHINE OPERATOR provided occasional [id number]-vx-ozitzlyd cues for target words due to pt difficulty with multisyllabic words, which reduced frustration and facilitated word retrieval. Additionally, practiced retrieval of the names of [place] landmarks as pt enjoys traveling. Assessment Patient Response to Treatment Excellent Rehab Potential Excellent Impairments Identified Expressive language Progress Towards Goals Excellent Progress Assessment of Overall Progress Improving Assessment of Improvement Pt's connected speech continues to improve based on END TOUCHING MACHINE OPERATOR observation. Pt completed SFA activities with 73% accuracy independently, increasing to 96% accuracy given minimal visual cues, demonstrating a sustained improvement since treatment initiated. Notably, SFA activities have been increasing in linguistic complexity with pt showing sustained performance despite increasingly complex tasks. Confrontation naming of everyday items/small appliances was completed with 100% accuracy this date following SFA activities. Pt successfully utilized self- cueing with whiteboard to name [place] landmarks during naming activity. Reviewed with Patient Progress Being Made Patient/Caregiver Understanding Excellent Plan Amount of Therapy Recommended 3-4 Months Frequency of Treatment Twice a Week Length of Session 45 Minutes Treatment Emphasis Next Session Continue PARKING STATION ATTENDANT and SFA Therapeutic Contents Expressive Language Training Provided Patient/Caregiver Instruction Home Exercise Program Therapy Recommendations Continue with Current Program
--- NOTE | 2022-07-14 17:20 | ST.OPTN ---
Visit Care Team Role Provider Type Gema Armenta PA-C Attending Provider Non-Staff Family Provider Primary Care Provider Referring Provider Address: [facility] Shannan Mustafa, [address] [id number], [place], [address] FLOATLIGHT POWDER MIXER Treatment Note FLOATLIGHT POWDER MIXER Treatment Note Start: 06/02/22 16:17 Freq: Status: Active Protocol: Document 07/14/22 16:26 CG (Rec: 07/14/22 16:29 CG [id number]) Speech Pathology Treatment Note Session Time Visit Start Time 15:30 Visit Stop Time 16:25 Total Visit Minutes 55 Visit Information Visit Number 13 Plan of Care Dates 05/22/22-08/22/22 Setting Treatment Setting Outpatient Care Visit Type Note Type Treatment Note Next Note Type Next Note Type Treatment Note General Information Patient History Michelle is a pleasant 56 year old female who was admitted to the hospital on 04/29/22 for a stroke. Initially, she was unable to communicate at all and states she could not make sense of what I was thinking. Since her discharge from the hospital on 05/02/22, her speech has progressed such that she is now able to communicate basic wants and needs. 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 She reports that she uses some compensatory strategies at home, including description/ circumlocution and writing or texting rather than speaking in order to allow for more processing timw. She has been working through Aphasia workbooks at home that she ordered on [employer], and her daughter and niece state that she has a tendency to try to complete these exercises all day to the point of frustration. She also reports that her aphasia worsens later in the day. Though Michelle expresses frustration with her speech, she says that it does not cause embarassment because she is simply motivated to recover and push through the word-finding difficulties. Subjective Identification Type Name Observations/Patient Presentation Pt attended the session with her daughter (Ju). She was alert, oriented, pleasant, and cooperative throughout the session. Chief Complaint(s) Language Patient Knowledge/Awareness of FLOATLIGHT POWDER MIXER Role Excellent in Treatment Objective Short Term Goals 1. Pt and family will benefit from education regarding aphasia and stroke recovery. 2. Pt will complete exercises to facilitate word finding with 75% accuracy given minimal verbal cues. 3. Pt will complete confrontation naming tasks with 50% accuracy given maximal visual and verbal cues . Active Directory Architect Goals Pt will complete confronation naming tasks with 80% accuracy independently. Pt will increase functional speech/language skills to WFL in order to communicate complex thoughts and ideas as well as basic wants/needs, and in order to return to PLOF. Treatment Activities Continued instruction in Semantic Feature Analysis (SFA ) for word-finding via strengthened semantic network, with graded cueing for word- finding including the use of whiteboard and first letter for self-cue. Began attempting longer words today, including 4-syllable words. FLOATLIGHT POWDER MIXER provided frequent syllable -by-syllable cues this session for target words due to pt difficulty with multisyllabic words due to pt having more difficulty today. Additionally , practiced retrieval of words based on semantic description . Assessment Patient Response to Treatment Excellent Rehab Potential Excellent Impairments Identified Expressive language Progress Towards Goals Excellent Progress Assessment of Overall Progress Improving Assessment of Improvement Pt's connected speech continues to improve based on FLOATLIGHT POWDER MIXER observation. Pt completed SFA activities with 71% accuracy independently, increasing to 96% accuracy given minimal visual cues, demonstrating a sustained improvement since treatment initiated. Target words continue to increase on phonemic complexity, with more multi-syllabic words targeted . Pt successfully utilized self-cueing with whiteboard throughout tx. Reviewed with Patient Progress Being Made Patient/Caregiver Understanding Excellent Plan Amount of Therapy Recommended 6 Months Comment Increase therapy duration due to not yet reaching PLOF Frequency of Treatment Twice a Week Length of Session 45 Minutes Treatment Emphasis Next Session Continue PUBLIC RELATIONS SUPERVISOR and SFA Therapeutic Contents Expressive Language Training Provided Patient/Caregiver Instruction Plan of Care Therapy Recommendations Continue with Current Program
--- NOTE | 2022-07-21 16:37 | ST.OPTN ---
Visit Care Team Role Provider Type Gema Armenta PA-C Attending Provider Non-Staff Family Provider Primary Care Provider Referring Provider Address: [facility] Shannan Mustafa, [address] [address], [place], [address] COMPLIANCE CLERK Treatment Note COMPLIANCE CLERK Treatment Note Start: 06/02/22 16:17 Freq: Status: Active Protocol: Document 07/21/22 16:33 CG (Rec: 07/21/22 16:36 CG [id number]) Speech Pathology Treatment Note Session Time Visit Start Time 15:30 Visit Stop Time 16:30 Total Visit Minutes 60 Visit Information Visit Number 13 Plan of Care Dates 05/22/22-08/22/22 Setting Treatment Setting Outpatient Care Visit Type Note Type Treatment Note Next Note Type Next Note Type Treatment Note General Information Patient History Michelle is a pleasant 56 year old female who was admitted to the hospital on 04/29/22 for a stroke. Initially, she was unable to communicate at all and states she could not make sense of what I was thinking. Since her discharge from the hospital on 05/02/22, her speech has progressed such that she is now able to communicate basic wants and needs. 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 She reports that she uses some compensatory strategies at home, including description/ circumlocution and writing or texting rather than speaking in order to allow for more processing timw. She has been working through Aphasia workbooks at home that she ordered on [employer], and her daughter and niece state that she has a tendency to try to complete these exercises all day to the point of frustration. She also reports that her aphasia worsens later in the day. Though Michelle expresses frustration with her speech, she says that it does not cause embarassment because she is simply motivated to recover and push through the word-finding difficulties. Subjective Identification Type Name Observations/Patient Presentation Pt attended the session with her daughter (Ju). She was alert, oriented, pleasant, and cooperative throughout the session. Chief Complaint(s) Language Patient Knowledge/Awareness of COMPLIANCE CLERK Role Excellent in Treatment Objective Short Term Goals 1. Pt and family will benefit from education regarding aphasia and stroke recovery. 2. Pt will complete exercises to facilitate word finding with 75% accuracy given minimal verbal cues. 3. Pt will complete confrontation naming tasks with 50% accuracy given maximal visual and verbal cues . Operation Specialist Goals Pt will complete confronation naming tasks with 80% accuracy independently. Pt will increase functional speech/language skills to WFL in order to communicate complex thoughts and ideas as well as basic wants/needs, and in order to return to PLOF. Treatment Activities Continued instruction in Semantic Feature Analysis (SFA ) for word-finding via strengthened semantic network, with graded cueing for word- finding including the use of whiteboard and first letter for self-cue. Increased phonemic complexity to target 5-syllable words today. COMPLIANCE CLERK provided occasional syllable- by-syllable cues this session for target words due to pt difficulty with multisyllabic words, but overall pt had less difficulty with motor planning today. Practiced functional activities including having multiple mock phone conversations with functional scenarios. Assessment Patient Response to Treatment Excellent Rehab Potential Excellent Impairments Identified Expressive language Progress Towards Goals Excellent Progress Assessment of Overall Progress Improving Assessment of Improvement Pt's connected speech continues to improve based on COMPLIANCE CLERK observation. Pt completed SFA activities with 76% accuracy independently, increasing to 100% accuracy given minimal visual cues, demonstrating a sustained improvement since treatment initiated. Target words continue to increase on phonemic complexity, with more multi-syllabic words targeted . Pt successfully utilized self-cueing with whiteboard and first-sound cue throughout tx. Pt's connected speech continues to improve and is marked by fewer interruptions in communication due to aphasia. Reviewed with Patient Progress Being Made Patient/Caregiver Understanding Excellent Plan Amount of Therapy Recommended 6 Months Comment Increase therapy duration due to not yet reaching PLOF Frequency of Treatment Twice a Week Length of Session 45 Minutes Treatment Emphasis Next Session Continue COMMERCIAL DRIVER and SFA Therapeutic Contents Expressive Language Training Provided Patient/Caregiver Instruction Plan of Care Therapy Recommendations Continue with Current Program
--- NOTE | 2022-07-24 14:19 | ST.OPTN ---
Visit Care Team Role Provider Type Gema Armenta PA-C Attending Provider Non-Staff Family Provider Primary Care Provider Referring Provider [facility] Shannan Mustafa, [address] [address], [place], [address] BLOCKER HAND Treatment Note BLOCKER HAND Clinical Instructor Line Start: 07/24/22 11:36 Freq: Status: Active Protocol: Document 07/24/22 11:37 BE (Rec: 07/24/22 11:45 BE [id number]) Clinical Instructor Signature Clinical Instructor Clinical Instructor Yes BLOCKER HAND Treatment Note Start: 06/02/22 16:17 Freq: Status: Active Protocol: Document 07/24/22 11:37 BE (Rec: 07/24/22 11:45 BE [id number]) Speech Pathology Treatment Note Session Time Visit Start Time 10:45 Visit Stop Time 11:35 Total Visit Minutes 50 Visit Information Visit Number 14 Plan of Care Dates 05/22/22-08/22/22 Setting Treatment Setting Outpatient Care Visit Type Note Type Treatment Note Next Note Type Next Note Type Treatment Note General Information Patient History Elizabeth is a pleasant 56 year old female who was admitted to the hospital on 04/29/22 for a stroke. Initially, she was unable to communicate at all and states she could not make sense of what I was thinking. Since her discharge from the hospital on 05/02/22, her speech has progressed such that she is now able to communicate basic wants and needs. 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 She reports that she uses some compensatory strategies at home, including description/ circumlocution and writing or texting rather than speaking in order to allow for more processing timw. She has been working through Aphasia workbooks at home that she ordered on [employer], and her daughter and niece state that she has a tendency to try to complete these exercises all day to the point of frustration. She also reports that her aphasia worsens later in the day. Though Michelle expresses frustration with her speech, she says that it does not cause embarassment because she is simply motivated to recover and push through the word-finding difficulties. Subjective Identification Type Name Observations/Patient Presentation Pt arrived on time for the session by herself. She was alert, oriented, pleasant, and cooperative throughout the session. Chief Complaint(s) Language Patient Knowledge/Awareness of BLOCKER HAND Role Excellent in Treatment Objective Short Term Goals 1. Pt and family will benefit from education regarding aphasia and stroke recovery. 2. Pt will complete exercises to facilitate word finding with 75% accuracy given minimal verbal cues. 3. Pt will complete confrontation naming tasks with 50% accuracy given maximal visual and verbal cues . Intermediate Goals Pt will complete confrontation naming tasks with 80% accuracy independently. Pt will increase functional speech/language skills to WFL in order to communicate complex thoughts and ideas as well as basic wants/needs, and in order to return to PLOF. Treatment Activities Targeted word generation when given initial phoneme and category boundaries (e.g., starts with a g, type of food) . Pt could often generate initial sound or syllable of targeted word, and used a whiteboard to assist in sounding out the rest of the word. She demonstrated difficulty recognizing syllable boundaries and grapheme-phoneme correspondence while writing words. BLOCKER HAND provided occasional syllable-by- syllable cues this session for target words due to pt difficulty with multisyllabic words. Targeted syllable boundary identification when given written word, with 2/4 correctly identified. Implemented use of counting syllables by fingers, and assigned as home practice. Gave pt word-finding worksheets from [facility] workbook. Pt expressed a desire to continue using a variety of activities to target word- finding. Assessment Patient Response to Treatment Excellent Rehab Potential Excellent Impairments Identified Expressive language Progress Towards Goals Excellent Progress Assessment of Overall Progress Improving Assessment of Improvement Target words continue to increase on phonemic complexity, with more multi- syllabic words targeted. Pt successfully utilized self- cueing with whiteboard and first-sound cue throughout tx. Pt's connected speech continues to improve and is marked by fewer interruptions in communication due to aphasia. Reviewed with Patient Progress Being Made Patient/Caregiver Understanding Excellent Plan Amount of Therapy Recommended 6 Months Comment Increase therapy duration due to not yet reaching PLOF Frequency of Treatment Twice a Week Length of Session 45 Minutes Treatment Emphasis Next Session Continue PRIMARY SPECIAL EDUCATOR and SFA Therapeutic Contents Expressive Language Training Provided Patient/Caregiver Instruction Plan of Care Therapy Recommendations Continue with Current Program
--- NOTE | 2022-07-28 16:23 | ST.OPTN ---
Visit Care Team Role Provider Type Gema Armenta PA-C Attending Provider Non-Staff Family Provider Primary Care Provider Referring Provider Address: [facility] Shannan Mustafa, [address] [address], [place], [address] MENTAL HEALTH ADVANCED PRACTICE NURSE Treatment Note MENTAL HEALTH ADVANCED PRACTICE NURSE Clinical Instructor Line Start: 07/24/22 11:36 Freq: Status: Active Protocol: Document 07/24/22 11:37 BE (Rec: 07/24/22 11:45 BE [id number]) Clinical Instructor Signature Clinical Instructor Clinical Instructor Yes MENTAL HEALTH ADVANCED PRACTICE NURSE Treatment Note Start: 06/02/22 16:17 Freq: Status: Active Protocol: Document 07/28/22 16:18 CG (Rec: 07/28/22 16:23 CG [id number]) Speech Pathology Treatment Note Session Time Visit Start Time 15:20 Visit Stop Time 16:15 Total Visit Minutes 45 Visit Information Visit Number 15 Plan of Care Dates 05/22/22-08/22/22 Setting Treatment Setting Outpatient Care Visit Type Note Type Treatment Note Next Note Type Next Note Type Treatment Note General Information Patient History Elizabeth is a pleasant 56 year old female who was admitted to the hospital on 04/29/22 for a stroke. Initially, she was unable to communicate at all and states she could not make sense of what I was thinking. Since her discharge from the hospital on 05/02/22, her speech has progressed such that she is now able to communicate basic wants and needs. 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 She reports that she uses some compensatory strategies at home, including description/ circumlocution and writing or texting rather than speaking in order to allow for more processing timw. She has been working through Aphasia workbooks at home that she ordered on [employer], and her daughter and niece state that she has a tendency to try to complete these exercises all day to the point of frustration. She also reports that her aphasia worsens later in the day. Though Michelle expresses frustration with her speech, she says that it does not cause embarassment because she is simply motivated to recover and push through the word-finding difficulties. Subjective Identification Type Name Observations/Patient Presentation Pt arrived on time for the session by herself. She was alert, oriented, pleasant, and cooperative throughout the session. Chief Complaint(s) Language Patient Knowledge/Awareness of MENTAL HEALTH ADVANCED PRACTICE NURSE Role Excellent in Treatment Objective Short Term Goals 1. Pt and family will benefit from education regarding aphasia and stroke recovery. 2. Pt will complete exercises to facilitate word finding with 75% accuracy given minimal verbal cues. 3. Pt will complete confrontation naming tasks with 50% accuracy given maximal visual and verbal cues . Supervisor Fireworks Assembly Goals Pt will complete confronation naming tasks with 80% accuracy independently. Pt will increase functional speech/language skills to WFL in order to communicate complex thoughts and ideas as well as basic wants/needs, and in order to return to PLOF. Treatment Activities Targeted functional language by having pt describe step-by- step instructions of how to complete everyday tasks, with use of word-finding strategies incorporated whenever a lapse in fluent communication was experienced. MENTAL HEALTH ADVANCED PRACTICE NURSE provided occasional syllable-by- syllable cues this session for target words due to pt difficulty with multisyllabic words, but pt mostly self-cued with a whiteboard. Assessment Patient Response to Treatment Excellent Rehab Potential Excellent Impairments Identified Expressive language Progress Towards Goals Excellent Progress Assessment of Overall Progress Improving Assessment of Improvement Target words continue to increase on phonemic complexity, with more multi- syllabic words targeted. Pt successfully utilized self- cueing with whiteboard and first-sound cue throughout tx. Pt's connected speech continues to improve and is marked by fewer interruptions in communication due to aphasia. Elizabeth states that she still has hard moments, but feels the words come faster than before. Communication breakdowns generally resolve within 30 seconds to one minute, which is a significant improvement from initial sessions in which word finding may take 2-3 minutes. Reviewed with Patient Progress Being Made Patient/Caregiver Understanding Excellent Plan Amount of Therapy Recommended 6 Months Comment Increase therapy duration due to not yet reaching PLOF Frequency of Treatment Twice a Week Length of Session 45 Minutes Treatment Emphasis Next Session Continue SFA and phonemic activities Therapeutic Contents Expressive Language Training Provided Patient/Caregiver Instruction Other Comment Discussed progress Therapy Recommendations Continue with Current Program
--- NOTE | 2022-07-31 15:04 | ST.OPTN ---
Visit Care Team Role Provider Type Gema Armenta PA-C Attending Provider Non-Staff Family Provider Primary Care Provider Referring Provider Address: [facility] Shannan Mustafa, [address] [address], [place], [address] [address] PATROL OFFICER Treatment Note HIGHW[facility] PATROL OFFICER Clinical Instructor Line Start: 07/24/22 11:36 Freq: Status: Active Protocol: Document 07/31/22 14:48 BE (Rec: 07/31/22 15:04 BE [id number]) Clinical Instructor Signature Clinical Instructor Clinical Instructor Yes [facility]IGHWAY PATROL OFFICER Treatment Note Start: 06/02/22 16:17 Freq: Status: Active Protocol: Document 07/31/22 14:48 BE (Rec: 07/31/22 15:04 BE [id number]) Speech Pathology Treatment Note Session Time Visit Start Time 13:15 Visit Stop Time 14:00 Total Visit Minutes 50 Visit Information Visit Number 16 Plan of Care Dates 05/22/22-08/22/22 Setting Treatment Setting Outpatient Care Visit Type Note Type Treatment Note Next Note Type Next Note Type Treatment Note General Information Patient History Elizabeth is a pleasant 56 year old female who was admitted to the hospital on 04/29/22 for a stroke. Initially, she was unable to communicate at all and states she could not make sense of what I was thinking. Since her discharge from the hospital on 05/02/22, her speech has progressed such that she is now able to communicate basic wants and needs. 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 She reports that she uses some compensatory strategies at home, including description/ circumlocution and writing or texting rather than speaking in order to allow for more processing time. She has been working through Aphasia workbooks at home that she ordered on [employer], and her daughter and niece state that she has a tendency to try to complete these exercises all day to the point of frustration. She also reports that her aphasia worsens later in the day. Though Michelle expresses frustration with her speech, she says that it does not cause embarassment because she is simply motivated to recover and push through the word-finding difficulties. Subjective Identification Type Name Observations/Patient Presentation Pt arrived on time for the session by herself. She was alert, oriented, pleasant, and cooperative throughout the session. Pt reported highly fluctuating weight with irregular cravings for caffeine and sugar, as well as missed hunger cues resulting in repeating/forgetting meals. Recommend referral to pari mutuel ticket seller. Chief Complaint(s) Language Patient Knowledge/Awareness of HIGHWAY PATROL OFFICER Role Excellent in Treatment Objective Short Term Goals 1. Pt and family will benefit from education regarding aphasia and stroke recovery. 2. Pt will complete exercises to facilitate word finding with 75% accuracy given minimal verbal cues. 3. Pt will complete confrontation naming tasks with 50% accuracy given maximal visual and verbal cues . Hydrogen Plant Operations Manager Goals Pt will complete confrontation naming tasks with 80% accuracy independently. Pt will increase functional speech/language skills to WFL in order to communicate complex thoughts and ideas as well as basic wants/needs, and in order to return to PLOF. Treatment Activities Targeted word-retrieval strategies in conversation. With 1x initial cue at start of conversation, pt successfully self-cued using written words in 10/12 opportunities. Elizabeth reported using personal notepad and phone to self-cue when in conversation outside of ST, with written (vs. typed ) being most effective for word-retrieval. Targeted syllable boundary markin/8 correct independently with high effort. Elizabeth reported follow through with worksheets at home, and syllable boundary practice. Assessment Patient Response to Treatment Excellent Rehab Potential Excellent Impairments Identified Expressive language Progress Towards Goals Excellent Progress Assessment of Overall Progress Improving Assessment of Improvement Target words continue to increase on phonemic complexity, with more multi- syllabic words targeted. Pt successfully utilized self- cueing with whiteboard and first-sound cue throughout tx. Pt's connected speech continues to improve and is marked by fewer interruptions in communication due to aphasia. Elizabeth states that she still has hard moments, but feels the words come faster than before. Communication breakdowns generally resolve within 30 seconds to one minute, which is a significant improvement from initial sessions in which word finding may take 2-3 minutes. Reviewed with Patient Progress Being Made Patient/Caregiver Understanding Excellent Plan Amount of Therapy Recommended 6 Months Comment Increase therapy duration due to not yet reaching PLOF Frequency of Treatment Twice a Week Length of Session 45 Minutes Treatment Emphasis Next Session Continue SFA and phonemic activities Therapeutic Contents Expressive Language Training Provided Patient/Caregiver Instruction Other Comment Discussed progress Therapy Recommendations Continue with Current Program
--- NOTE | 2022-08-04 17:44 | ST.OPTN ---
Visit Care Team Role Provider Type Gema Armenta PA-C Attending Provider Non-Staff Family Provider Primary Care Provider Referring Provider Address: [facility] Shannan Mustafa, [address] [address], [place], [address] PLASTIC PANEL INSTALLER Treatment Note PLASTIC PANEL INSTALLER Clinical Instructor Line Start: 07/24/22 11:36 Freq: Status: Active Protocol: Document 07/31/22 14:48 BE (Rec: 07/31/22 15:04 BE [id number]) Clinical Instructor Signature Clinical Instructor Clinical Instructor Yes PLASTIC PANEL INSTALLER Treatment Note Start: 06/02/22 16:17 Freq: Status: Active Protocol: Document 08/04/22 16:20 CG (Rec: 08/04/22 17:43 CG [id number]) Speech Pathology Treatment Note Session Time Visit Start Time 15:30 Visit Stop Time 16:20 Total Visit Minutes 50 Visit Information Visit Number 17 Plan of Care Dates 05/22/22-08/22/22 Setting Treatment Setting Outpatient Care Visit Type Note Type Treatment Note Next Note Type Next Note Type Treatment Note General Information Patient History Elizabeth is a pleasant 56 year old female who was admitted to the hospital on 04/29/22 for a stroke. Initially, she was unable to communicate at all and states she could not make sense of what I was thinking. Since her discharge from the hospital on 05/02/22, her speech has progressed such that she is now able to communicate basic wants and needs. 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 She reports that she uses some compensatory strategies at home, including description/ circumlocution and writing or texting rather than speaking in order to allow for more processing timw. She has been working through Aphasia workbooks at home that she ordered on [employer], and her daughter and niece state that she has a tendency to try to complete these exercises all day to the point of frustration. She also reports that her aphasia worsens later in the day. Though Michelle expresses frustration with her speech, she says that it does not cause embarassment because she is simply motivated to recover and push through the word-finding difficulties. Subjective Identification Type Name Observations/Patient Presentation Pt arrived on time for the session by herself. She was alert, oriented, pleasant, and cooperative throughout the session. Chief Complaint(s) Language Patient Knowledge/Awareness of PLASTIC PANEL INSTALLER Role Excellent in Treatment Objective Short Term Goals 1. Pt and family will benefit from education regarding aphasia and stroke recovery. 2. Pt will complete exercises to facilitate word finding with 75% accuracy given minimal verbal cues. 3. Pt will complete confrontation naming tasks with 50% accuracy given maximal visual and verbal cues . Half-Way Goals Pt will complete confronation naming tasks with 80% accuracy independently. Pt will increase functional speech/language skills to WFL in order to communicate complex thoughts and ideas as well as basic wants/needs, and in order to return to PLOF. Treatment Activities Targeted word-retrieval strategies in functional conversation, including role- playing activity in which pt practice interfacing with blood bank business manager. This led to discussion regarding life participation and pt's current feelings of impact of aphasia on QOL. Worked to develop Aphasia Cards for pt to carry , which explain what aphasia is and lists strategies to help her communicate. Provided pt counseling on trying to pursue IADLs with the help of these supports, in order to restore normalcy and continue to rebuild neural pathways. Assessment Patient Response to Treatment Excellent Rehab Potential Excellent Impairments Identified Expressive language Progress Towards Goals Excellent Progress Assessment of Overall Progress Improving Assessment of Improvement Pt states she doesn't yet feel comfortable with interfacing with customer service representatives, e.g. bank tellers, as she thinks they will not understand what she is trying to say or will assume she doesn't know what she is talking about. She was very receptive to aphasia cards and states she will attempt to use them to resume normal interactions such as ordering food/coffee and talking to bank tellers. Reviewed with Patient Progress Being Made Patient/Caregiver Understanding Excellent Plan Amount of Therapy Recommended 6 Months Comment Increase therapy duration due to not yet reaching PLOF Frequency of Treatment Twice a Week Length of Session 45 Minutes Treatment Emphasis Next Session Continue phonemic activities and check in re life participation Therapeutic Contents Client Education,Expressive Language Training Provided Patient/Caregiver Instruction Other Comment Use of aids for life participation Therapy Recommendations Continue with Current Program
--- NOTE | 2022-08-18 10:35 | ST.OPPOC ---
Physical, Occupational & Speech Therapy At [facility] Visit Care Team Role Provider Type Gema Armenta PA-C Attending Provider Non-Staff Family Provider Primary Care Provider Referring Provider Address: [facility] Shannan Mustafa, [address], [place], [address] Speech Pathology Plan of Care SIGNALS ANALYST Clinical Instructor Line Start: 07/24/22 11:36 Freq: Status: Active Protocol: Document 07/31/22 14:48 BE (Rec: 07/31/22 15:04 BE [id number]) Clinical Instructor Signature Clinical Instructor Clinical Instructor Yes Speech Pathology Plan of Care Plan of Care Dates 08/18/22-11/18/22 Referring Provider Gema Armenta PA-C Patient History Elizabeth is a pleasant 56 year old female who was admitted to the hospital on 04/29/22 for a stroke. Initially, she was unable to communicate at all and states she could not make sense of what I was thinking. Since her discharge from the hospital on 05/02/22, her speech has progressed such that she is now able to communicate basic wants and needs. Her daughter and niece, who were present at her evaluation, stated that she frequently tries to say a word but uses the wrong sound (phonemic paraphasias). She reports that she uses some compensatory strategies at home, including description/circumlocution and writing or texting rather than speaking in order to allow for more processing time. She has been working through Aphasia workbooks at home that she ordered on [employer], and her daughter and niece state that she has a tendency to try to complete these exercises all day to the point of frustration. She also reports that her aphasia worsens later in the day. Though Michelle expresses frustration with her speech, she says that it does not cause embarassment because she is simply motivated to recover and push through the word-finding difficulties. Impairments Identified Expressive language Progress Towards Goals Excellent Progress Self-awareness of Cognitive- Predictive awareness (abl Communication Deficits General Tasks and Demands Mild Household Tasks Mild Interpersonal Interactions Severe Education Severe Employment Severe Community Severe Being Left Alone at Home Mild Reacting to Emergency Moderate Managing Medication Mild Traveling Alone in Community Moderate Short Term Goals 1. Elizabeth will disclose that she is a person with aphasia, to unfamiliar communication partners, in 75% of appropriate opportunities as measured by pt report, in order to increase participation with IADLs and community life. 2. Pt will identify syllable boundaries within multisyllabic words in order to increase phonemic awareness and promote rehabilitation of reading and writing skills. 3. Pt will engage in functional conversational exchanges independently while utilizing supported conversation for aphasia techniques in order to decrease communication breakdowns during conversational exchanges. 4. Pt will complete semantic and phonemic strengthening tasks (eg SFA and PICTURE ENLARGER) with 80% accuracy independently. Aircraft Ordnance Technician Goals Pt will increase functional speech/language skills to WFL in order to communicate complex thoughts and ideas as well as basic wants/needs, and in order to return to OF. Comment: Electronically Signed by: ANU James 08/18/22 2007 If you are in agreement with this Plan of Care, please return a signed and dated copy. I have reviewed this Plan of Care and certify that the skilled therapy services above are required to meet the patient?s needs. Physician Signature Date Printed Name and Credentials Clinical Instructor Signature Printed Name and Credentials
--- NOTE | 2022-08-24 15:46 | ST.OPTN ---
Visit Care Team Role Provider Type Gema Armenta PA-C Attending Provider Non-Staff Family Provider Primary Care Provider Referring Provider Address: [facility] Shannan Mustafa, [address] [address], [place], [address] NECKTIE MAKER Treatment Note NECKTIE MAKER Clinical Instructor Line Start: 07/24/22 11:36 Freq: Status: Active Protocol: Document 07/31/22 14:48 BE (Rec: 07/31/22 15:04 BE [id number]) Clinical Instructor Signature Clinical Instructor Clinical Instructor Yes NECKTIE MAKER Treatment Note Start: 06/02/22 16:17 Freq: Status: Active Protocol: Document 08/24/22 15:38 CG (Rec: 08/24/22 15:46 CG [id number]) Speech Pathology Treatment Note Session Time Visit Start Time 14:19 Visit Stop Time 15:00 Total Visit Minutes 41 Visit Information Visit Number 18 Plan of Care Dates 08/18/22-11/18/22 Setting Treatment Setting Outpatient Care Visit Type Note Type Treatment Note Next Note Type Next Note Type Treatment Note General Information Patient History Elizabeth is a pleasant 56 year old female who was admitted to the hospital on 04/29/22 for a stroke. Initially, she was unable to communicate at all and states she could not make sense of what I was thinking. Since her discharge from the hospital on 05/02/22, her speech has progressed such that she is now able to communicate basic wants and needs. 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 She reports that she uses some compensatory strategies at home, including description/ circumlocution and writing or texting rather than speaking in order to allow for more processing timw. She has been working through Aphasia workbooks at home that she ordered on [employer], and her daughter and niece state that she has a tendency to try to complete these exercises all day to the point of frustration. She also reports that her aphasia worsens later in the day. Though Michelle expresses frustration with her speech, she says that it does not cause embarassment because she is simply motivated to recover and push through the word-finding difficulties. Subjective Identification Type Name Observations/Patient Presentation Pt arrived on time for the session by herself. She was alert, oriented, pleasant, and cooperative throughout the session. Chief Complaint(s) Language Patient Knowledge/Awareness of NECKTIE MAKER Role Excellent in Treatment Objective Short Term Goals 1. Elizabeth will disclose that she is a person with aphasia, to unfamiliar communication partners, in 75% of appropriate opportunities as measured by pt report, in order to increase participation with IADLs and community life. 2. Pt will identify syllable boundaries within multisyllabic words in order to increase phonemic awareness and promote rehabilitation of reading and writing skills. 3. Pt will engage in functional conversational exchanges independently while utilizing supported conversation for aphasia techniques in order to decrease communication breakdowns during conversational exchanges. 4. Pt will complete semantic and phonemic strengthening tasks (eg SFA and MATE FISHING VESSEL) with 80 % accuracy independently. Jail Guard Goals Pt will increase functional speech/language skills to WFL in order to communicate complex thoughts and ideas as well as basic wants/needs, and in order to return to PLOF. Treatment Activities Targeted confrontation naming paired with identifying syllable boundaries and writing syllables in [place] boxes. Additionally, discussed use of Aphasia Cards and life participation following discussion last session. Practiced reading simple 3-4 word written sentences. Assessment Patient Response to Treatment Excellent Rehab Potential Excellent Impairments Identified Expressive language Progress Towards Goals Excellent Progress Assessment of Overall Progress Improving Assessment of Improvement Pt completed syllable boundary activity with 67% accuracy independently, increasing to 93% accuracy given minimal verbal cues from NECKTIE MAKER. She states she has presented Aphasia Cards to strangers at least 10 times since last session, and believes these give her the confidence to communicate more independently . She states she recently returned from hiking trip with her daughters and states she communicated independently throughout the trip and instructed her daughters not to help her/intervene. She believes this has helped her overall progress. Pt does appear to present with fewer word-finding difficulties and less frustration even since last session. She states she continues to struggle with reading, but that it is getting a lot better and that working on writing syllable boundaries does help with reading. during reading activity today, pt was 90% accuracte independently, but occasionally demonstrated difficulty correctly reading suffixes and other small grammatical morphemes. Reviewed with Patient Goals,Progress Being Made Patient/Caregiver Understanding Excellent Plan Amount of Therapy Recommended 3-4 Months Comment Increase therapy duration due to not yet reaching PLOF Frequency of Treatment Twice a Week Length of Session 45 Minutes Treatment Emphasis Next Session Continue phonemic activities and reading practice Therapeutic Contents Client Education,Cognitive- Linguistic Training,Expressive Language Training Provided Patient/Caregiver Instruction Plan of Care,Other Therapy Recommendations Continue with Current Program
--- NOTE | 2022-08-31 15:22 | ST.OPTN ---
Visit Care Team Role Provider Type Gema Armenta PA-C Attending Provider Non-Staff Family Provider Primary Care Provider Referring Provider Address: [facility] Shannan Mustafa, [address] [address], [place], [address] STUDENT LIAISON OFFICER Treatment Note STUDENT LIAISON OFFICER Clinical Instructor Line Start: 07/24/22 11:36 Freq: Status: Active Protocol: Document 07/31/22 14:48 BE (Rec: 07/31/22 15:04 BE [id number]) Clinical Instructor Signature Clinical Instructor Clinical Instructor Yes STUDENT LIAISON OFFICER Treatment Note Start: 06/02/22 16:17 Freq: Status: Active Protocol: Document 08/31/22 15:18 CG (Rec: 08/31/22 15:22 CG [id number]) Speech Pathology Treatment Note Session Time Visit Start Time 14:15 Visit Stop Time 15:00 Total Visit Minutes 45 Visit Information Visit Number 19 Plan of Care Dates 08/18/22-11/18/22 Setting Treatment Setting Outpatient Care Visit Type Note Type Treatment Note Next Note Type Next Note Type Treatment Note General Information Patient History Elizabeth is a pleasant 56 year old female who was admitted to the hospital on 04/29/22 for a stroke. Initially, she was unable to communicate at all and states she could not make sense of what I was thinking. Since her discharge from the hospital on 05/02/22, her speech has progressed such that she is now able to communicate basic wants and needs. 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 She reports that she uses some compensatory strategies at home, including description/ circumlocution and writing or texting rather than speaking in order to allow for more processing timw. She has been working through Aphasia workbooks at home that she ordered on [employer], and her daughter and niece state that she has a tendency to try to complete these exercises all day to the point of frustration. She also reports that her aphasia worsens later in the day. Though Michelle expresses frustration with her speech, she says that it does not cause embarassment because she is simply motivated to recover and push through the word-finding difficulties. Subjective Identification Type Name Observations/Patient Presentation Pt arrived on time for the session by herself. She was alert, oriented, pleasant, and cooperative throughout the session. Chief Complaint(s) Language Patient Knowledge/Awareness of STUDENT LIAISON OFFICER Role Excellent in Treatment Objective Short Term Goals 1. Elizabeth will disclose that she is a person with aphasia, to unfamiliar communication partners, in 75% of appropriate opportunities as measured by pt report, in order to increase participation with IADLs and community life. 2. Pt will identify syllable boundaries within multisyllabic words in order to increase phonemic awareness and promote rehabilitation of reading and writing skills. 3. Pt will engage in functional conversational exchanges independently while utilizing supported conversation for aphasia techniques in order to decrease communication breakdowns during conversational exchanges. 4. Pt will complete semantic and phonemic strengthening tasks (eg SFA and PIANO REGULATOR INSPECTOR) with 80 % accuracy independently. Wet Process Operator Goals Pt will increase functional speech/language skills to WFL in order to communicate complex thoughts and ideas as well as basic wants/needs, and in order to return to PLOF. Treatment Activities Targeted confrontation naming paired with identifying syllable boundaries and writing syllables in [place]- style boxes. Practiced engaging in functional conversations related to airport travel to prepare for upcoming trip. Assessment Patient Response to Treatment Excellent Rehab Potential Excellent Impairments Identified Expressive language Progress Towards Goals Excellent Progress Assessment of Overall Progress Improving Assessment of Improvement Pt completed syllable boundary activity with 43% accuracy independently, increasing to 71% accuracy given minimal verbal cues from STUDENT LIAISON OFFICER. Of note, words targeted today were longer and more complex than previous targets (word such as catamaran and radiologist ). She states she continues to struggle with reading, but that she had been making progress since targeting syllable boundaries. Pt was able to engage in functional conversations without the need for cues to utilize compensatory techniques for word finding. Reviewed with Patient Goals,Progress Being Made Patient/Caregiver Understanding Excellent Plan Amount of Therapy Recommended 3-4 Months Comment Increase therapy duration due to not yet reaching PLOF Frequency of Treatment Twice a Week Length of Session 45 Minutes Treatment Emphasis Next Session Continue phonemic activities and reading practice Therapeutic Contents Client Education,Cognitive- Linguistic Training,Expressive Language Training Provided Patient/Caregiver Instruction Plan of Care,Other Therapy Recommendations Continue with Current Program
--- NOTE | 2022-09-21 15:15 | ST.OPTN ---
Visit Care Team Role Provider Type Gema Armetna PA-C Attending Provider Non-Staff Family Provider Primary Care Provider Referring Provider Address: [facility] Shannan Mustafa, [address] [address], [place], [address] DEMAND PLANNER Treatment Note DEMAND PLANNER Clinical Instructor Line Start: 07/24/22 11:36 Freq: Status: Active Protocol: Document 07/31/22 14:48 BE (Rec: 07/31/22 15:04 BE [id number]) Clinical Instructor Signature Clinical Instructor Clinical Instructor Yes DEMAND PLANNER Treatment Note Start: 06/02/22 16:17 Freq: Status: Active Protocol: Document 09/21/22 15:05 CG (Rec: 09/21/22 15:15 CG [id number]) Speech Pathology Treatment Note Session Time Visit Start Time 14:15 Visit Stop Time 15:00 Total Visit Minutes 45 Visit Information Visit Number 19 Plan of Care Dates 08/18/22-11/18/22 Setting Treatment Setting Outpatient Care Visit Type Note Type Treatment Note Next Note Type Next Note Type Treatment Note General Information Patient History Elizabeth is a pleasant 56 year old female who was admitted to the hospital on 04/29/22 for a stroke. Initially, she was unable to communicate at all and states she could not make sense of what I was thinking. Since her discharge from the hospital on 05/02/22, her speech has progressed such that she is now able to communicate basic wants and needs. 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 She reports that she uses some compensatory strategies at home, including description/ circumlocution and writing or texting rather than speaking in order to allow for more processing timw. She has been working through Aphasia workbooks at home that she ordered on [employer], and her daughter and niece state that she has a tendency to try to complete these exercises all day to the point of frustration. She also reports that her aphasia worsens later in the day. Though Michelle expresses frustration with her speech, she says that it does not cause embarassment because she is simply motivated to recover and push through the word-finding difficulties. Subjective Identification Type Name Observations/Patient Presentation Pt arrived on time for the session by herself. She was alert, oriented, pleasant, and cooperative throughout the session. Chief Complaint(s) Language Patient Knowledge/Awareness of DEMAND PLANNER Role Excellent in Treatment Objective Short Term Goals 1. Elizabeth will disclose that she is a person with aphasia, to unfamiliar communication partners, in 75% of appropriate opportunities as measured by pt report, in order to increase participation with IADLs and community life. 2. Pt will identify syllable boundaries within multisyllabic words in order to increase phonemic awareness and promote rehabilitation of reading and writing skills. 3. Pt will engage in functional conversational exchanges independently while utilizing supported conversation for aphasia techniques in order to decrease communication breakdowns during conversational exchanges. 4. Pt will complete semantic and phonemic strengthening tasks (eg SFA and TRANSITION MGR) with 80 % accuracy independently. Small Business Sales Representative Goals Pt will increase functional speech/language skills to WFL in order to communicate complex thoughts and ideas as well as basic wants/needs, and in order to return to PLOF. Treatment Activities Targeted writing sentences with multisyllabic words, stopping to segment words into syllables as needed for accurate sheet metal duct installer. Discussed oral-motor self cueing by bringing awareness to articulators and allowing placement to guide syllable-by -syllable sheet metal duct installer. Assessment Patient Response to Treatment Excellent Rehab Potential Excellent Impairments Identified Expressive language Progress Towards Goals Excellent Progress Assessment of Overall Progress Improving Assessment of Improvement Pt completed sentence recall and sheet metal duct installer activity in which pt was presented with sentence orally and then repeated and transcrived sentence onto whiteboard, with DEMAND PLANNER cues to improve writing/ sheet metal duct installer skills throughout. Words targeted within this activity included four-syllable words such as: seamless tube drawer, certificate, miscalculation, ceremony, championship. Pt was able to transcribe 4-5 word sentence containing multisyllabic words with 40% accuracy independently, increasing to 80% accuracy given min- moderate verbal cues from DEMAND PLANNER. She states she has been doing extensive research on stroke recovery and is concerned that she is not using her brain enough at home to promote neuroplasticity. DEMAND PLANNER gave recommendation for pt to continue completing this activity at home using phone's voice to text as spell loom stop checker. Pt states she no longer is avoiding phone calls or confrontation and is taking charge of her own medical care. She will be attending a neurologist appointment next week after a 5 month wait. Reviewed with Patient Goals,Progress Being Made Patient/Caregiver Understanding Excellent Plan Amount of Therapy Recommended 3-4 Months Comment Increase therapy duration due to not yet reaching PLOF Frequency of Treatment Twice a Week Length of Session 45 Minutes Treatment Emphasis Next Session Continue phonemic activities and reading practice Therapeutic Contents Client Education,Cognitive- Linguistic Training,Expressive Language Training Provided Patient/Caregiver Instruction Plan of Care,Other Therapy Recommendations Continue with Current Program
--- NOTE | 2022-09-28 15:31 | ST.OPTN ---
Visit Care Team Role Provider Type Gema Armenta PA-C Attending Provider Non-Staff Family Provider Primary Care Provider Referring Provider Address: [facility] Shannan Mustafa, [address] [address], [place], [address] ROCKET ENGINE COMPONENT MECHANIC Treatment Note ROCKET ENGINE COMPONENT MECHANIC Clinical Instructor Line Start: 07/24/22 11:36 Freq: Status: Active Protocol: Document 07/31/22 14:48 BE (Rec: 07/31/22 15:04 BE [id number]) Clinical Instructor Signature Clinical Instructor Clinical Instructor Yes ROCKET ENGINE COMPONENT MECHANIC Treatment Note Start: 06/02/22 16:17 Freq: Status: Active Protocol: Document 09/28/22 15:24 CG (Rec: 09/28/22 15:31 CG [id number]) Speech Pathology Treatment Note Session Time Visit Start Time 14:33 Visit Stop Time 15:25 Total Visit Minutes 52 Visit Information Visit Number 20 Plan of Care Dates 08/18/22-11/18/22 Setting Treatment Setting Outpatient Care Visit Type Note Type Treatment Note Next Note Type Next Note Type Treatment Note General Information Patient History Elizabeth is a pleasant 56 year old female who was admitted to the hospital on 04/29/22 for a stroke. Initially, she was unable to communicate at all and states she could not make sense of what I was thinking. Since her discharge from the hospital on 05/02/22, her speech has progressed such that she is now able to communicate basic wants and needs. 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 She reports that she uses some compensatory strategies at home, including description/ circumlocution and writing or texting rather than speaking in order to allow for more processing timw. She has been working through Aphasia workbooks at home that she ordered on [employer], and her daughter and niece state that she has a tendency to try to complete these exercises all day to the point of frustration. She also reports that her aphasia worsens later in the day. Though Michelle expresses frustration with her speech, she says that it does not cause embarassment because she is simply motivated to recover and push through the word-finding difficulties. Subjective Identification Type Name Observations/Patient Presentation Pt arrived on time for the session by herself. She was alert, oriented, pleasant, and cooperative throughout the session. Chief Complaint(s) Language Patient Knowledge/Awareness of ROCKET ENGINE COMPONENT MECHANIC Role Excellent in Treatment Objective Short Term Goals 1. Elizabeth will disclose that she is a person with aphasia, to unfamiliar communication partners, in 75% of appropriate opportunities as measured by pt report, in order to increase participation with IADLs and community life. 2. Pt will identify syllable boundaries within multisyllabic words in order to increase phonemic awareness and promote rehabilitation of reading and writing skills. 3. Pt will engage in functional conversational exchanges independently while utilizing supported conversation for aphasia techniques in order to decrease communication breakdowns during conversational exchanges. 4. Pt will complete semantic and phonemic strengthening tasks (eg SFA and BARREL AND RECEIVER ALIGNER) with 80 % accuracy independently. Instant Printer Operator Goals Pt will increase functional speech/language skills to WFL in order to communicate complex thoughts and ideas as well as basic wants/needs, and in order to return to OF. Treatment Activities Complete functional reading/ visual scanning activity with [employer] book reading tasks including mock wedding invitation, coupon book, and [employer] market report. Targeted writing sentences with multisyllabic words, stopping to segment words into syllables as needed for accurate fabric finisher. Continued practice in oral- motor self cueing by bringing awareness to articulators and allowing placement to guide [id number] fabric finisher, as well as strategy to find core word/ root word within multisyllabic words containing prefixes and suffixes. Assessment Patient Response to Treatment Excellent Rehab Potential Excellent Impairments Identified Expressive language Progress Towards Goals Excellent Progress Assessment of Overall Progress Improving Assessment of Improvement Pt answered questions related to functional reading/visual scanning tasks with 85% accuracy independently. Pt completed sentence recall and fabric finisher activity in which pt was presented with a target word orally and then repeated and transcribed sentence onto whiteboard, with ROCKET ENGINE COMPONENT MECHANIC cues to improve writing/ fabric finisher skills throughout. Words targeted within this activity included four- to 5-syllable words. Pt was able to transcribe 4-5 word sentence containing multisyllabic words with 33% accuracy independently, increasing to 100% accuracy given min-moderate verbal cues from ROCKET ENGINE COMPONENT MECHANIC. Pt was encouraged to try to continue crosswords, which were previously a hobby for her, as her writing and reading skills continue to improve. Pt will be attending a neurologist appointment this Wednesday. Discussed resuming twice weekly appointments now that schedule has opened up. Reviewed with Patient Goals,Progress Being Made Patient/Caregiver Understanding Excellent Plan Amount of Therapy Recommended 3-4 Months Comment Increase therapy duration due to not yet reaching PLOF Frequency of Treatment Twice a Week Length of Session 45 Minutes Treatment Emphasis Next Session Continue phonemic activities and reading practice Therapeutic Contents Client Education,Cognitive- Linguistic Training,Expressive Language Training Provided Patient/Caregiver Instruction Plan of Care,Other Therapy Recommendations Continue with Current Program
--- NOTE | 2022-10-01 12:52 | ST-OP ANOTE ---
Physical, Occupational & Speech Therapy At [facility] Speech Therapy Note SANITATION SUPERVISOR (Rae Rodriguez) called pt's PCP office (Gema Armenta PA-C) at 12:50pm 10/01/22 and left a voicemail discussing the need for a new referral for more speech therapy visits.
--- NOTE | 2022-10-01 13:33 | ST.OPTN ---
Visit Care Team Role Provider Type Gema Armenta PA-C Attending Provider Non-Staff Family Provider Primary Care Provider Referring Provider Address: [facility] Shannan Mustafa, [address] [address], [place], [address] TURNSTILE ATTENDANT Treatment Note TURNSTILE ATTENDANT Clinical Instructor Line Start: 07/24/22 11:36 Freq: Status: Active Protocol: Document 07/31/22 14:48 BE (Rec: 07/31/22 15:04 BE [id number]) Clinical Instructor Signature Clinical Instructor Clinical Instructor Yes TURNSTILE ATTENDANT Treatment Note Start: 06/02/22 16:17 Freq: Status: Active Protocol: Document 10/01/22 13:03 CG (Rec: 10/01/22 13:32 CG [id number]) Speech Pathology Treatment Note Session Time Visit Start Time 11:55 Visit Stop Time 12:45 Total Visit Minutes 50 Visit Information Visit Number 20 Plan of Care Dates 08/18/22-11/18/22 Setting Treatment Setting Outpatient Care Visit Type Note Type Treatment Note Next Note Type Next Note Type Treatment Note General Information Patient History Elizabeth is a pleasant 56 year old female who was admitted to the hospital on 04/29/22 for a stroke. Initially, she was unable to communicate at all and states she could not make sense of what I was thinking. Since her discharge from the hospital on 05/02/22, her speech has progressed such that she is now able to communicate basic wants and needs. 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 She reports that she uses some compensatory strategies at home, including description/ circumlocution and writing or texting rather than speaking in order to allow for more processing timw. She has been working through Aphasia workbooks at home that she ordered on [employer], and her daughter and niece state that she has a tendency to try to complete these exercises all day to the point of frustration. She also reports that her aphasia worsens later in the day. Though Michelle expresses frustration with her speech, she says that it does not cause embarassment because she is simply motivated to recover and push through the word-finding difficulties. Subjective Identification Type Name Observations/Patient Presentation Pt arrived on time for the session by herself. She was alert, oriented, and cooperative throughout the session, but was frustrated due to her experience with the scheduling team and a difficult trip to the neurologist yesterday. Chief Complaint(s) Language Patient Knowledge/Awareness of TURNSTILE ATTENDANT Role Excellent in Treatment Objective Short Term Goals 1. Elizabeth will disclose that she is a person with aphasia, to unfamiliar communication partners, in 75% of appropriate opportunities as measured by pt report, in order to increase participation with IADLs and community life. 2. Pt will identify syllable boundaries within multisyllabic words in order to increase phonemic awareness and promote rehabilitation of reading and writing skills. 3. Pt will engage in functional conversational exchanges independently while utilizing supported conversation for aphasia techniques in order to decrease communication breakdowns during conversational exchanges. 4. Pt will complete semantic and phonemic strengthening tasks (eg SFA and CERTIFIED APPLIANCE SERVICE TECHNICIAN) with 80 % accuracy independently. Multimedia Production Assistant Goals Pt will increase functional speech/language skills to WFL in order to communicate complex thoughts and ideas as well as basic wants/needs, and in order to return to [facility]. Treatment Activities Majority of session spent on pt education/counseling regarding stroke recovery, neuroplasticity, and next steps for new referrals from PCP. Completed functional reading/visual scanning activity with [facility] book reading task of reading a bank statement and answering questions. Provided at-home practice sheets for ready and answering questions about financial statements. TURNSTILE ATTENDANT called PCP office and left voicemail to discuss needing new referral for further speech therapy. Assessment Patient Response to Treatment Excellent Rehab Potential Excellent Impairments Identified Expressive language Progress Towards Goals Excellent Progress Assessment of Overall Progress Improving Assessment of Improvement Pt stated that she had seen the neurologist yesterday and had a very negative experience . She states he told her that after 6 months out from the stroke, she will likely not see more recovery. 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 He explained that her stroke was caused by difficulties with her heart ( the pt has previously been in the hospital with V-tach) and that she likely will only survive another 5 years. The pt felt that the neurologist did not take into account all of the progress that she has made in the last 5 months. Pt was receptive to TURNSTILE ATTENDANT counseling regarding neuroplasticity and the brain' s ability to compensate for lost neuronal function. TURNSTILE ATTENDANT assured pt that her trajectory is still indicating improvement and progress with language and cognitive function based on session data . Pt agreed to follow up with PCP regarding a referral to a mental health professional to help with the emotional toll of this experience. She is also attending a stroke survivor support group for the first time today after this appointment. The pt answered questions related to functional reading/ visual scanning tasks with 100 % accuracy independently this session, which is a continued improvement from last session. She was observed to frequently self-correct when she misread a number. Reviewed with Patient Goals,Progress Being Made Patient/Caregiver Understanding Excellent Plan Amount of Therapy Recommended 3-4 Months Comment Increase therapy duration due to not yet reaching PLOF Frequency of Treatment Twice a Week Length of Session 45 Minutes Treatment Emphasis Next Session Continue phonemic activities and reading practice Therapeutic Contents Client Education,Cognitive- Linguistic Training,Expressive Language Training Provided Patient/Caregiver Instruction Plan of Care,Other Therapy Recommendations Continue with Current Program
--- NOTE | 2022-10-05 17:07 | ST.OPTN ---
Visit Care Team Role Provider Type Gema Armenta PA-C Attending Provider Non-Staff Family Provider Primary Care Provider Referring Provider Address: [facility] Shannan Mustafa, [address] [address], [place], [address] FABRICATION SUPERVISOR Treatment Note FABRICATION SUPERVISOR Clinical Instructor Line Start: 07/24/22 11:36 Freq: Status: Active Protocol: Document 07/31/22 14:48 BE (Rec: 07/31/22 15:04 BE [id number]) Clinical Instructor Signature Clinical Instructor Clinical Instructor Yes FABRICATION SUPERVISOR Treatment Note Start: 06/02/22 16:17 Freq: Status: Active Protocol: Document 10/05/22 16:58 CG (Rec: 10/05/22 17:06 CG [id number]) Speech Pathology Treatment Note Session Time Visit Start Time 14:30 Visit Stop Time 15:25 Total Visit Minutes 55 Visit Information Visit Number 21 Plan of Care Dates 08/18/22-11/18/22 Setting Treatment Setting Outpatient Care Visit Type Note Type Treatment Note Next Note Type Next Note Type Treatment Note General Information Patient History Elizabeth is a pleasant 56 year old female who was admitted to the hospital on 04/29/22 for a stroke. Initially, she was unable to communicate at all and states she could not make sense of what I was thinking. Since her discharge from the hospital on 05/02/22, her speech has progressed such that she is now able to communicate basic wants and needs. 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 She reports that she uses some compensatory strategies at home, including description/ circumlocution and writing or texting rather than speaking in order to allow for more processing timw. She has been working through Aphasia workbooks at home that she ordered on [employer], and her daughter and niece state that she has a tendency to try to complete these exercises all day to the point of frustration. She also reports that her aphasia worsens later in the day. Though Michelle expresses frustration with her speech, she says that it does not cause embarassment because she is simply motivated to recover and push through the word-finding difficulties. Subjective Identification Type Name Observations/Patient Presentation Pt arrived on time for the session by herself. She was alert, oriented, and cooperative throughout the session. Chief Complaint(s) Language Patient Knowledge/Awareness of FABRICATION SUPERVISOR Role Excellent in Treatment Objective Short Term Goals 1. Elizabeth will disclose that she is a person with aphasia, to unfamiliar communication partners, in 75% of appropriate opportunities as measured by pt report, in order to increase participation with IADLs and community life. 2. Pt will identify syllable boundaries within multisyllabic words in order to increase phonemic awareness and promote rehabilitation of reading and writing skills. 3. Pt will engage in functional conversational exchanges independently while utilizing supported conversation for aphasia techniques in order to decrease communication breakdowns during conversational exchanges. 4. Pt will complete semantic and phonemic strengthening tasks (eg SFA and DISABILITY BENEFITS SPECIALIST) with 80 % accuracy independently. Retirement Goals Pt will increase functional speech/language skills to WFL in order to communicate complex thoughts and ideas as well as basic wants/needs, and in order to return to PLOF. Treatment Activities Provided pt education regarding ongoing outside referrals including behavioral health for behavior/emotional changes occasionally affecting pt's ability to complete communicative exchanges. Completed language- based computation problems based on functional scenarios including calculating tip, calculating discounts from sale, etc. Assessment Patient Response to Treatment Excellent Rehab Potential Excellent Impairments Identified Expressive language Progress Towards Goals Excellent Progress Assessment of Overall Progress Improving Assessment of Improvement Pt began attending stroke survivor support group last week. She also states she disclosed her aphasia to her friends from back home when she talked with them over Facetime over the weekend. Overall, Elizabeth has made excellent progress on her goal to disclose her aphasia to others in order to increase her ability to participate in IADLs. The pt answered questions related to word problems read aloud by FABRICATION SUPERVISOR with 63% accuracy independently this session. Will continue to work on strategies for listening for haney information in spoken problem-solving exercises in order to increase accuracy. Pt was provided with at-home practice sheet of functional word problems to complete before next session. Reviewed with Patient Goals,Progress Being Made Patient/Caregiver Understanding Excellent Plan Amount of Therapy Recommended 3-4 Months Comment Increase therapy duration due to not yet reaching PLOF Frequency of Treatment Twice a Week Length of Session 45 Minutes Treatment Emphasis Next Session Resume syllable boundary practice, review at-home practice Therapeutic Contents Client Education,Cognitive- Linguistic Training,Expressive Language Training Provided Patient/Caregiver Instruction Plan of Care,Other Therapy Recommendations Continue with Current Program Suggested Referral Other Other Referrals Behavioral health
--- NOTE | 2022-10-06 17:30 | ST-OP ANOTE ---
Physical, Occupational & Speech Therapy At [facility] Speech Therapy Note Administrative Note regarding recommended referral by PCP- FREDERICK Armenta, Based on discussions with Elizabeth during language therapy treatment, I feel she would benefit from behavioral health and/or psychiatric intervention to address the emotional repercussions of her stroke in addition to her speech/language deficits. The patient stated she was previously on medication for anxiety, but this was discontinued. Her speech and language abilities do appear to be impacted by anxiety, as her word-finding difficulties increase in instances of stress and anxiety. Additionally, her word-finding is significantly impacted by her fatigue levels. She states that she has some trouble sleeping due to anxiety. Elizabeth has made dramatic functional gains since starting language therapy, and is continuing to progress towards prior level of function. Elizabeth noted that she has an upcoming appointment with you in October. I just wanted to touch base with this information in advance. Thank you again for the referral and for your ongoing help in ensuring Elizabeth is able to have access to language therapy. Feel free to contact me via phone at [phone] or via email at [email or web address]. Kind regards, Rae Rodriguez M.S., CCC-COSMETIC COUNSELOR
--- NOTE | 2022-10-08 13:31 | ST.OPTN ---
Visit Care Team Role Provider Type Gema Armenta PA-C Attending Provider Non-Staff Family Provider Primary Care Provider Referring Provider Address: [facility] Shannan Mustafa, [address] [address], [place], [address] SNOWMAKER Treatment Note SNOWMAKER Clinical Instructor Line Start: 07/24/22 11:36 Freq: Status: Active Protocol: Document 07/31/22 14:48 BE (Rec: 07/31/22 15:04 BE [id number]) Clinical Instructor Signature Clinical Instructor Clinical Instructor Yes SNOWMAKER Treatment Note Start: 06/02/22 16:17 Freq: Status: Active Protocol: Document 10/08/22 13:21 CG (Rec: 10/08/22 13:30 CG [id number]) Speech Pathology Treatment Note Session Time Visit Start Time 11:45 Visit Stop Time 12:38 Total Visit Minutes 53 Visit Information Visit Number 22 Plan of Care Dates 08/18/22-11/18/22 Setting Treatment Setting Outpatient Care Visit Type Note Type Treatment Note Next Note Type Next Note Type Treatment Note General Information Patient History Elizabeth is a pleasant 56 year old female who was admitted to the hospital on 04/29/22 for a stroke. Initially, she was unable to communicate at all and states she could not make sense of what I was thinking. Since her discharge from the hospital on 05/02/22, her speech has progressed such that she is now able to communicate basic wants and needs. 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 She reports that she uses some compensatory strategies at home, including description/ circumlocution and writing or texting rather than speaking in order to allow for more processing timw. She has been working through Aphasia workbooks at home that she ordered on [employer], and her daughter and niece state that she has a tendency to try to complete these exercises all day to the point of frustration. She also reports that her aphasia worsens later in the day. Though Michelle expresses frustration with her speech, she says that it does not cause embarassment because she is simply motivated to recover and push through the word-finding difficulties. Subjective Identification Type Name Observations/Patient Presentation Pt arrived on time for the session by herself. She was alert, oriented, and cooperative throughout the session. Chief Complaint(s) Language Patient Knowledge/Awareness of SNOWMAKER Role Excellent in Treatment Objective Short Term Goals 1. Elizabeth will disclose that she is a person with aphasia, to unfamiliar communication partners, in 75% of appropriate opportunities as measured by pt report, in order to increase participation with IADLs and community life. 2. Pt will identify syllable boundaries within multisyllabic words in order to increase phonemic awareness and promote rehabilitation of reading and writing skills. 3. Pt will engage in functional conversational exchanges independently while utilizing supported conversation for aphasia techniques in order to decrease communication breakdowns during conversational exchanges. 4. Pt will complete semantic and phonemic strengthening tasks (eg SFA and SHIPPING COORDINATOR) with 80 % accuracy independently. Shelter Goals Pt will increase functional speech/language skills to WFL in order to communicate complex thoughts and ideas as well as basic wants/needs, and in order to return to PLOF. Treatment Activities Completed word-finding activities based on SNOWMAKER description of target word, followed by pt working to identify number of syllables and identify syllable boundaries within target word. Given graded cueing from SNOWMAKER , pt segmented target word into syllables and wrote each syllable before practicing target word, with the goal of increasing grapheme-phoneme correspondence within pt's linguistic network. Assessment Patient Response to Treatment Excellent Rehab Potential Excellent Impairments Identified Expressive language Progress Towards Goals Excellent Progress Assessment of Overall Progress Improving Assessment of Improvement Pt identified syllable boundaries in 4-5 syllable, high-specificity words, with 17% accuracy independently. This increased to 50% accuracy given minimal verbal or visual cues from SNOWMAKER and 100% accuracy given maximal verbal and visual cues from SNOWMAKER. Examples of words targeted today included appendicitis, kleptomaniac, bibliography , and geometry. Pt is continuing to work towards higher linguistic level with these multisyllabic and tier- three target words. She continues to have difficulty segmenting words into syllables and typically reads words as a gestalt unit rather than breaking down by syllable or grapheme/phoneme. Pt will benefit from increased awareness of phoneme -grapheme correspondence in order to increase reading and writing abilities to return to previous levels. Pt continues to make excellent progress. Connected speech is generally fluent without the presence of paraphasias. She is becoming involved in community programs for stroke recovery and supports. Prognosis remains highly positive. Reviewed with Patient Goals,Progress Being Made Patient/Caregiver Understanding Excellent Plan Amount of Therapy Recommended 3-4 Months Comment Increase therapy duration due to not yet reaching PLOF Frequency of Treatment Twice a Week Length of Session 45 Minutes Treatment Emphasis Next Session Continue syllable boundary practice Therapeutic Contents Client Education,Cognitive- Linguistic Training,Expressive Language Training Provided Patient/Caregiver Instruction Plan of Care,Other Therapy Recommendations Continue with Current Program Suggested Referral Other Other Referrals Behavioral health
--- NOTE | 2022-10-12 16:21 | ST.OPTN ---
Visit Care Team Role Provider Type Gema Armenta PA-C Attending Provider Non-Staff Family Provider Primary Care Provider Referring Provider Address: [facility] Shannan Mustafa, [address] [address], [place], [address] PARTS IDENTIFICATION TECHNICIAN Treatment Note PARTS IDENTIFICATION TECHNICIAN Clinical Instructor Line Start: 07/24/22 11:36 Freq: Status: Active Protocol: Document 07/31/22 14:48 BE (Rec: 07/31/22 15:04 BE [id number]) Clinical Instructor Signature Clinical Instructor Clinical Instructor Yes PARTS IDENTIFICATION TECHNICIAN Treatment Note Start: 06/02/22 16:17 Freq: Status: Active Protocol: Document 10/12/22 15:30 CG (Rec: 10/12/22 15:34 CG [id number]) Speech Pathology Treatment Note Session Time Visit Start Time 14:30 Visit Stop Time 15:30 Total Visit Minutes 60 Visit Information Visit Number 23 Plan of Care Dates 08/18/22-11/18/22 Setting Treatment Setting Outpatient Care Visit Type Note Type Treatment Note Next Note Type Next Note Type Treatment Note General Information Patient History Elizabeth is a pleasant 56 year old female who was admitted to the hospital on 04/29/22 for a stroke. Initially, she was unable to communicate at all and states she could not make sense of what I was thinking. Since her discharge from the hospital on 05/02/22, her speech has progressed such that she is now able to communicate basic wants and needs. 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 She reports that she uses some compensatory strategies at home, including description/ circumlocution and writing or texting rather than speaking in order to allow for more processing timw. She has been working through Aphasia workbooks at home that she ordered on [employer], and her daughter and niece state that she has a tendency to try to complete these exercises all day to the point of frustration. She also reports that her aphasia worsens later in the day. Though Michelle expresses frustration with her speech, she says that it does not cause embarassment because she is simply motivated to recover and push through the word-finding difficulties. Subjective Identification Type Name Observations/Patient Presentation Pt arrived on time for the session by herself. She was alert, oriented, and cooperative throughout the session. Chief Complaint(s) Language Patient Knowledge/Awareness of PARTS IDENTIFICATION TECHNICIAN Role Excellent in Treatment Objective Short Term Goals 1. Elizabeth will disclose that she is a person with aphasia, to unfamiliar communication partners, in 75% of appropriate opportunities as measured by pt report, in order to increase participation with IADLs and community life. 2. Pt will identify syllable boundaries within multisyllabic words in order to increase phonemic awareness and promote rehabilitation of reading and writing skills. 3. Pt will engage in functional conversational exchanges independently while utilizing supported conversation for aphasia techniques in order to decrease communication breakdowns during conversational exchanges. 4. Pt will complete semantic and phonemic strengthening tasks (eg SFA and WINDSHIELD REPAIR TECHNICIAN) with 80 % accuracy independently. Mcfp Goals Pt will increase functional speech/language skills to WFL in order to communicate complex thoughts and ideas as well as basic wants/needs, and in order to return to PLOF. Treatment Activities Pt worked to segment target words of 4-5 phonemes into each phoneme with the goal of increasing grapheme-phoneme correspondence within pt's linguistic network. Completed word-finding activities based on PARTS IDENTIFICATION TECHNICIAN description of target word, followed by pt working to identify number of syllables and identify syllable boundaries within target word. This was completed with 5-syllable words. Assessment Patient Response to Treatment Excellent Rehab Potential Excellent Impairments Identified Expressive language Progress Towards Goals Excellent Progress Assessment of Overall Progress Improving Assessment of Improvement Pt identified phoneme boundaries in 4-phoneme words with 73% accuracy independently, increasing to 100% accuracy given minimal verbal cues. In 5-phoneme words, she identified syllable boundaries with 43% accuracy independently, increasing to 73% accuracy given minimal verbal cues. During syllable segmentation activity, the pt had increased difficulty today and required max cues. Given max cues, she was able to segment words with 75% accuracy. Reviewed with Patient Goals,Progress Being Made Patient/Caregiver Understanding Excellent Plan Amount of Therapy Recommended 3-4 Months Comment Increase therapy duration due to not yet reaching PLOF Frequency of Treatment Twice a Week Length of Session 45 Minutes Treatment Emphasis Next Session Continue syllable boundary practice Therapeutic Contents Client Education,Cognitive- Linguistic Training,Expressive Language Training Provided Patient/Caregiver Instruction Plan of Care,Other Therapy Recommendations Continue with Current Program Suggested Referral Other Other Referrals Behavioral health
--- NOTE | 2022-10-20 16:56 | ST.OPTN ---
Visit Care Team Role Provider Type Gema Armenta PA-C Attending Provider Non-Staff Family Provider Primary Care Provider Referring Provider Address: [facility] Shannan Mustafa, [address] [address], [place], [address] VOLLEYBALL ASSISTANT COACH Treatment Note VOLLEYBALL ASSISTANT COACH Clinical Instructor Line Start: 07/24/22 11:36 Freq: Status: Active Protocol: Document 07/31/22 14:48 BE (Rec: 07/31/22 15:04 BE [id number]) Clinical Instructor Signature Clinical Instructor Clinical Instructor Yes VOLLEYBALL ASSISTANT COACH Treatment Note Start: 06/02/22 16:17 Freq: Status: Active Protocol: Document 10/20/22 16:44 CG (Rec: 10/20/22 16:56 CG [id number]) Speech Pathology Treatment Note Session Time Visit Start Time 15:30 Visit Stop Time 16:30 Total Visit Minutes 60 Visit Information Visit Number 24 Plan of Care Dates 08/18/22-11/18/22 Setting Treatment Setting Outpatient Care Visit Type Note Type Treatment Note Next Note Type Next Note Type Treatment Note General Information Patient History Elizabeth is a pleasant 56 year old female who was admitted to the hospital on 04/29/22 for a stroke. Initially, she was unable to communicate at all and states she could not make sense of what I was thinking. Since her discharge from the hospital on 05/02/22, her speech has progressed such that she is now able to communicate basic wants and needs. 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 She reports that she uses some compensatory strategies at home, including description/ circumlocution and writing or texting rather than speaking in order to allow for more processing time. She has been working through Aphasia workbooks at home that she ordered on [employer], and her daughter and niece state that she has a tendency to try to complete these exercises all day to the point of frustration. She also reports that her aphasia worsens later in the day. Though Michelle expresses frustration with her speech, she says that it does not cause embarrassment because she is simply motivated to recover and push through the word-finding difficulties. Subjective Identification Type Name Observations/Patient Presentation Pt arrived on time for the session by herself. She was alert, oriented, and cooperative throughout the session. Chief Complaint(s) Language Patient Knowledge/Awareness of VOLLEYBALL ASSISTANT COACH Role Excellent in Treatment Objective Short Term Goals 1. Elizabeth will disclose that she is a person with aphasia, to unfamiliar communication partners, in 75% of appropriate opportunities as measured by pt report, in order to increase participation with IADLs and community life. 2. Pt will identify syllable boundaries within multisyllabic words in order to increase phonemic awareness and promote rehabilitation of reading and writing skills. 3. Pt will engage in functional conversational exchanges independently while utilizing supported conversation for aphasia techniques in order to decrease communication breakdowns during conversational exchanges. 4. Pt will complete semantic and phonemic strengthening tasks (eg SFA and DRAWBRIDGE OPERATOR) with 80 % accuracy independently. Digital Community Manager Goals Pt will increase functional speech/language skills to L in order to communicate complex thoughts and ideas as well as basic wants/needs, and in order to return to [facility]. Treatment Activities Discussed life participation and accomodations for aphasia with upcoming travel plans. Additionally, worked to segment target words of 4-5 phonemes into each phoneme with the goal of increasing grapheme-phoneme correspondence within pt's linguistic network. Completed word-finding activities based on VOLLEYBALL ASSISTANT COACH description of target word, followed by pt working to identify number of syllables and identify syllable boundaries within target word. This was completed with 5-syllable words. Re-introduced Phonological Component Analysis for continued strengthening of phonemic network to increase reading/ writing skills. Assessment Patient Response to Treatment Excellent Rehab Potential Excellent Impairments Identified Expressive language Progress Towards Goals Excellent Progress Assessment of Overall Progress Improving Assessment of Improvement Pt is planning to travel back home to [place] in November . She states she has her Aphasia cards in her wallet and plans to use these during travel as necessary. Additionally, she will utilize early boarding for increased processing time to find her seat. Pt is independent with identifying environmental accommodations for remaining deficits. During syllable segmentation activity, pt identified phoneme syllable boundaries in 5-phoneme words with 43% accuracy independently, increasing to 100% accuracy given minimal verbal cues. During re-introduction of DRAWBRIDGE OPERATOR, pt completed DRAWBRIDGE OPERATOR with 100% accuracy independently. Will continue DRAWBRIDGE OPERATOR next session. Discussed outside referrals to request during upcoming appointment with PCP. Pt would benefit from behavioral health to manage anxiety as it effects language ability. VOLLEYBALL ASSISTANT COACH sent fax on 10/06/22 to pt' s PCP recommending this referral. Reviewed with Patient Goals,Progress Being Made Patient/Caregiver Understanding Excellent Plan Amount of Therapy Recommended 3-4 Months Comment Increase therapy duration due to not yet reaching PLOF Frequency of Treatment Twice a Week Length of Session 45 Minutes Treatment Emphasis Next Session Continue syllable boundary practice Therapeutic Contents Client Education,Cognitive- Linguistic Training,Expressive Language Training Provided Patient/Caregiver Instruction Plan of Care,Other Therapy Recommendations Continue with Current Program Suggested Referral Other Other Referrals Behavioral health
--- NOTE | 2022-10-26 16:30 | ST.OPTN ---
Visit Care Team Role Provider Type Gema Armenta PA-C Attending Provider Non-Staff Family Provider Primary Care Provider Referring Provider Address: [facility] Shannan Mustafa, [address] [address], [place], [address] REFERENCE ARCHIVIST Treatment Note REFERENCE ARCHIVIST Clinical Instructor Line Start: 07/24/22 11:36 Freq: Status: Active Protocol: Document 07/31/22 14:48 BE (Rec: 07/31/22 15:04 BE [id number]) Clinical Instructor Signature Clinical Instructor Clinical Instructor Yes REFERENCE ARCHIVIST Treatment Note Start: 06/02/22 16:17 Freq: Status: Active Protocol: Document 10/26/22 15:22 CG (Rec: 10/26/22 15:27 CG [id number]) Speech Pathology Treatment Note Session Time Visit Start Time 15:32 Visit Stop Time 16:22 Total Visit Minutes 50 Visit Information Visit Number 25 Plan of Care Dates 08/18/22-11/18/22 Setting Treatment Setting Outpatient Care Visit Type Note Type Treatment Note Next Note Type Next Note Type Treatment Note General Information Patient History Elizabeth is a pleasant 56 year old female who was admitted to the hospital on 04/29/22 for a stroke. Initially, she was unable to communicate at all and states she could not make sense of what I was thinking. Since her discharge from the hospital on 05/02/22, her speech has progressed such that she is now able to communicate basic wants and needs. 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 She reports that she uses some compensatory strategies at home, including description/ circumlocution and writing or texting rather than speaking in order to allow for more processing time. She has been working through Aphasia workbooks at home that she ordered on [employer], and her daughter and niece state that she has a tendency to try to complete these exercises all day to the point of frustration. She also reports that her aphasia worsens later in the day. Though Michelle expresses frustration with her speech, she says that it does not cause embarassment because she is simply motivated to recover and push through the word-finding difficulties. Subjective Identification Type Name Observations/Patient Presentation Pt arrived on time for the session by herself. She was alert, oriented, and cooperative throughout the session. Chief Complaint(s) Language Patient Knowledge/Awareness of REFERENCE ARCHIVIST Role Excellent in Treatment Objective Short Term Goals 1. Elizabeth will disclose that she is a person with aphasia, to unfamiliar communication partners, in 75% of appropriate opportunities as measured by pt report, in order to increase participation with IADLs and community life. 2. Pt will identify syllable boundaries within multisyllabic words in order to increase phonemic awareness and promote rehabilitation of reading and writing skills. 3. Pt will engage in functional conversational exchanges independently while utilizing supported conversation for aphasia techniques in order to decrease communication breakdowns during conversational exchanges. 4. Pt will complete semantic and phonemic strengthening tasks (eg SFA and CONCRETE STONE FABRICATOR) with 80 % accuracy independently. Residential Goals Pt will increase functional speech/language skills to WFL in order to communicate complex thoughts and ideas as well as basic wants/needs, and in order to return to PLOF. Treatment Activities Continued Phonological Component Analysis for continued strengthening of phonemic network to increase reading/writing skills. Reviewed PCP visit to discuss ongoing care. Assessment Patient Response to Treatment Excellent Rehab Potential Excellent Impairments Identified Expressive language Progress Towards Goals Excellent Progress Assessment of Overall Progress Improving Assessment of Improvement Pt completed CONCRETE STONE FABRICATOR with 57% accuracy independently this session, increasing to 100% accuracy given minimal verbal cues from REFERENCE ARCHIVIST for associate word and rhyme task. Reviewed with Patient Goals,Progress Being Made Patient/Caregiver Understanding Excellent Plan Amount of Therapy Recommended 3-4 Months Comment Increase therapy duration due to not yet reaching PLOF Frequency of Treatment Twice a Week Length of Session 45 Minutes Treatment Emphasis Next Session Continue CONCRETE STONE FABRICATOR, review syllable boundaries practice Therapeutic Contents Client Education,Cognitive- Linguistic Training,Expressive Language Training Provided Patient/Caregiver Instruction Plan of Care,Other Therapy Recommendations Continue with Current Program Suggested Referral Other Other Referrals Behavioral health
--- NOTE | 2022-11-03 16:27 | ST.OPTN ---
Visit Care Team Role Provider Type Gema Armenta PA-C Attending Provider Non-Staff Family Provider Primary Care Provider Referring Provider Address: [facility] Shannan Mustafa, [address] [address], [place], [address] PHYSICIAN OFFICE SPECIALIST Treatment Note PHYSICIAN OFFICE SPECIALIST Clinical Instructor Line Start: 07/24/22 11:36 Freq: Status: Active Protocol: Document 07/31/22 14:48 BE (Rec: 07/31/22 15:04 BE [id number]) Clinical Instructor Signature Clinical Instructor Clinical Instructor Yes PHYSICIAN OFFICE SPECIALIST Treatment Note Start: 06/02/22 16:17 Freq: Status: Active Protocol: Document 11/03/22 16:22 CG (Rec: 11/03/22 16:27 CG [id number]) Speech Pathology Treatment Note Session Time Visit Start Time 15:32 Visit Stop Time 16:22 Total Visit Minutes 50 Visit Information Visit Number 26 Plan of Care Dates 08/18/22-11/18/22 Setting Treatment Setting Outpatient Care Visit Type Note Type Treatment Note Next Note Type Next Note Type Treatment Note General Information Patient History Elizabeth is a pleasant 56 year old female who was admitted to the hospital on 04/29/22 for a stroke. Initially, she was unable to communicate at all and states she could not make sense of what I was thinking. Since her discharge from the hospital on 05/02/22, her speech has progressed such that she is now able to communicate basic wants and needs. 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 She reports that she uses some compensatory strategies at home, including description/ circumlocution and writing or texting rather than speaking in order to allow for more processing time. She has been working through Aphasia workbooks at home that she ordered on [employer], and her daughter and niece state that she has a tendency to try to complete these exercises all day to the point of frustration. She also reports that her aphasia worsens later in the day. Though Michelle expresses frustration with her speech, she says that it does not cause embarassment because she is simply motivated to recover and push through the word-finding difficulties. Subjective Identification Type Name Observations/Patient Presentation Pt arrived on time for the session by herself. She was alert, oriented, and cooperative throughout the session. Chief Complaint(s) Language Patient Knowledge/Awareness of PHYSICIAN OFFICE SPECIALIST Role Excellent in Treatment Objective Short Term Goals 1. Elizabeth will disclose that she is a person with aphasia, to unfamiliar communication partners, in 75% of appropriate opportunities as measured by pt report, in order to increase participation with IADLs and community life. 2. Pt will identify syllable boundaries within multisyllabic words in order to increase phonemic awareness and promote rehabilitation of reading and writing skills. 3. Pt will engage in functional conversational exchanges independently while utilizing supported conversation for aphasia techniques in order to decrease communication breakdowns during conversational exchanges. 4. Pt will complete semantic and phonemic strengthening tasks (eg SFA and MORTGAGE CLOSING CLERK) with 80 % accuracy independently. Usp Goals Pt will increase functional speech/language skills to WFL in order to communicate complex thoughts and ideas as well as basic wants/needs, and in order to return to PLOF. Treatment Activities Continued Phonological Component Analysis for continued strengthening of phonemic network to increase reading/writing skills. Continued practice of segmenting and transcribing multisyllabic words. Assessment Patient Response to Treatment Excellent Rehab Potential Excellent Impairments Identified Expressive language Progress Towards Goals Excellent Progress Assessment of Overall Progress Improving Assessment of Improvement Pt completed MORTGAGE CLOSING CLERK with 88% accuracy independently this session, which is a significant improvement from last session. During multi- syllable word tasks, Elizabeth was able to correctly segment and transcribe 4-syllable words in 50% of trials independently. She is beginning to show improvement with sound-letter correspondence. Elizabeth reports that she started [facility] group therapy, and had difficulty reading in front of others. This will continue to be a target for treatment. Will likely extend POC through end of year in order to continue to work towards PLOF. Reviewed with Patient Goals,Progress Being Made Patient/Caregiver Understanding Excellent Plan Amount of Therapy Recommended 3-4 Months Comment Increase therapy duration due to not yet reaching PLOF Frequency of Treatment Twice a Week Length of Session 45 Minutes Treatment Emphasis Next Session Syllable boundaries practice, sound-letter correspondence practice, reading Therapeutic Contents Client Education,Cognitive- Linguistic Training,Expressive Language Training Provided Patient/Caregiver Instruction Plan of Care,Other Therapy Recommendations Continue with Current Program Suggested Referral Other Other Referrals Behavioral health
--- NOTE | 2022-11-09 16:35 | ST.OPTN ---
Visit Care Team Role Provider Type Gema Armenta PA-C Attending Provider Non-Staff Family Provider Primary Care Provider Referring Provider Address: [facility] Shannan Mustafa, [address] [address], [place], [address] RUG CUTTER HELPER Treatment Note RUG CUTTER HELPER Clinical Instructor Line Start: 07/24/22 11:36 Freq: Status: Active Protocol: Document 07/31/22 14:48 BE (Rec: 07/31/22 15:04 BE [id number]) Clinical Instructor Signature Clinical Instructor Clinical Instructor Yes RUG CUTTER HELPER Treatment Note Start: 06/02/22 16:17 Freq: Status: Active Protocol: Document 11/09/22 15:26 CG (Rec: 11/09/22 15:33 CG [id number]) Speech Pathology Treatment Note Session Time Visit Start Time 14:30 Visit Stop Time 15:25 Total Visit Minutes 55 Visit Information Visit Number 27 Plan of Care Dates 08/18/22-11/18/22 Setting Treatment Setting Outpatient Care Visit Type Note Type Treatment Note Next Note Type Next Note Type Treatment Note General Information Patient History Elizabeth is a pleasant 56 year old female who was admitted to the hospital on 04/29/22 for a stroke. Initially, she was unable to communicate at all and states she could not make sense of what I was thinking. Since her discharge from the hospital on 05/02/22, her speech has progressed such that she is now able to communicate basic wants and needs. 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 She reports that she uses some compensatory strategies at home, including description/ circumlocution and writing or texting rather than speaking in order to allow for more processing time. She has been working through Aphasia workbooks at home that she ordered on [employer], and her daughter and niece state that she has a tendency to try to complete these exercises all day to the point of frustration. She also reports that her aphasia worsens later in the day. Though Michelle expresses frustration with her speech, she says that it does not cause embarassment because she is simply motivated to recover and push through the word-finding difficulties. Subjective Identification Type Name Observations/Patient Presentation Pt arrived on time for the session by herself. She was alert, oriented, and cooperative throughout the session. Chief Complaint(s) Language Patient Knowledge/Awareness of RUG CUTTER HELPER Role Excellent in Treatment Objective Short Term Goals 1. Elizabeth will disclose that she is a person with aphasia, to unfamiliar communication partners, in 75% of appropriate opportunities as measured by pt report, in order to increase participation with IADLs and community life. 2. Pt will identify syllable boundaries within multisyllabic words in order to increase phonemic awareness and promote rehabilitation of reading and writing skills. 3. Pt will engage in functional conversational exchanges independently while utilizing supported conversation for aphasia techniques in order to decrease communication breakdowns during conversational exchanges. 4. Pt will complete semantic and phonemic strengthening tasks (eg SFA and NET MANAGER) with 80 % accuracy independently. Fdc Goals Pt will increase functional speech/language skills to WFL in order to communicate complex thoughts and ideas as well as basic wants/needs, and in order to return to PLOF. Treatment Activities Practiced reading aloud with 12th grade lexile level to initiate Multiple Oral reading approach. Isolated multi- syllabic words from passage to identify syllable boundaries and practice oral mootor sequencing for accurate production during second attempt at oral reading. Assessment Patient Response to Treatment Excellent Rehab Potential Excellent Impairments Identified Expressive language Progress Towards Goals Excellent Progress Assessment of Overall Progress Improving Assessment of Improvement Elizabeth demonstrated some frustration anddifficulty with oral reading today, but stated she was glad to be practicing this activity because she feels that reading is a missing piece for her language ability to continue to be rehabilitated. After challenging words were identified, these were broken into syllables and re-read with data collected on whether or not the pt was able to produce them on second reading . During re-reading portion, Elizabeth produced challenge words with 57% accuracy fluently during reading, increasing to 93% accuracy with independent self- correction of misarticulated words. Reviewed with Patient Goals,Progress Being Made Patient/Caregiver Understanding Excellent Plan Amount of Therapy Recommended 3-4 Months Comment Increase therapy duration due to not yet reaching PLOF Frequency of Treatment Twice a Week Length of Session 45 Minutes Treatment Emphasis Next Session Syllable boundaries practice, sound-letter correspondence practice, reading Therapeutic Contents Client Education,Cognitive- Linguistic Training,Expressive Language Training Provided Patient/Caregiver Instruction Plan of Care,Other Therapy Recommendations Continue with Current Program Suggested Referral Other Other Referrals Behavioral health
--- NOTE | 2023-08-02 14:15 | ST.OPDS ---
Visit Care Team Role Provider Type Gema Armenta PA-C Attending Provider Non-Staff Family Provider Primary Care Provider Referring Provider Address: [facility] Shannan Mustafa, [address] [address], [place], [address] SUPERVISOR REFINING Discharge Summary SUPERVISOR REFINING Discharge Summary Start: 06/02/22 16:17 Freq: Status: Active Protocol: Document 08/02/23 14:08 CG (Rec: 08/02/23 14:15 CG [id number]) Speech Pathology Treatment Note Visit Information Visit Number 27 Plan of Care Dates 08/18/22-11/18/22 Setting Treatment Setting Outpatient Care Visit Type Note Type Discharge Summary Next Note Type Next Note Type Treatment Note General Information Patient History Elizabeth is a pleasant 56 year old female who was admitted to the hospital on 04/29/22 for a stroke. Initially, she was unable to communicate at all and states she could not make sense of what I was thinking. Since her discharge from the hospital on 05/02/22, her speech has progressed such that she is now able to communicate basic wants and needs. 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 She reports that she uses some compensatory strategies at home, including description/ circumlocution and writing or texting rather than speaking in order to allow for more processing time. She has been working through Aphasia workbooks at home that she ordered on [employer], and her daughter and niece state that she has a tendency to try to complete these exercises all day to the point of frustration. She also reports that her aphasia worsens later in the day. Though Michelle expresses frustration with her speech, she says that it does not cause embarassment because she is simply motivated to recover and push through the word-finding difficulties. Subjective Identification Type Name Chief Complaint(s) Language Patient Knowledge/Awareness of SUPERVISOR REFINING Role Excellent in Treatment Objective Short Term Goals 1. Elizabeth will disclose that she is a person with aphasia, to unfamiliar communication partners, in 75% of appropriate opportunities as measured by pt report, in order to increase participation with IADLs and community life. 2. Pt will identify syllable boundaries within multisyllabic words in order to increase phonemic awareness and promote rehabilitation of reading and writing skills. 3. Pt will engage in functional conversational exchanges independently while utilizing supported conversation for aphasia techniques in order to decrease communication breakdowns during conversational exchanges. 4. Pt will complete semantic and phonemic strengthening tasks (eg SFA and PIPE THREADING MACHINE OPERATOR) with 80 % accuracy independently. Sling Operator Goals Pt will increase functional speech/language skills to WFL in order to communicate complex thoughts and ideas as well as basic wants/needs, and in order to return to PLOF. Treatment Activities Treatment activities for aphasia included impairment- based treatments such as phonological component analysis (PIPE THREADING MACHINE OPERATOR), semantic feature analysis (SFA), and Multiple Oral Reading approaches. Additional semantic and phonological exercises were used to facilitate word finding and accurate motor sequencing, especially for multisyllabic words. Literacy-based treatments included tx for phoneme-grapheme correspondence. Pt education consisted of education related to aphasia, CVA recovery, and possible outside referrals for whole-person care, including behavioral health. Assessment Patient Response to Treatment Excellent Rehab Potential Excellent Impairments Identified Expressive language Progress Towards Goals Excellent Progress Assessment of Overall Progress Improving Assessment of Improvement Elizabeth demonstrated significant progress over the course of treatment. She increased her accuracy with reading aloud at the 12th grade lexile to approximately 90% accurate given minimal cues. She made improvements in her ability to complete phonological exercises related to target words, and her connected speech progressed from broken and tangential to fairly fluid with limited paraphasias. She made progress with self-advocacy, becoming involved in aphasia support groups and beginning to re-engage in IADLs such as travel. Elizabeth was unable to continue ST due to insurance benefits running out , and has not been seen since October 2022. D/c due to account inactivity. Reviewed with Patient Goals,Progress Being Made Patient/Caregiver Understanding Excellent Plan Amount of Therapy Recommended 3-4 Months Comment Increase therapy duration due to not yet reaching PLOF Frequency of Treatment Twice a Week Length of Session 45 Minutes Treatment Emphasis Next Session Syllable boundaries practice, sound-letter correspondence practice, reading Therapeutic Contents Client Education,Cognitive- Linguistic Training,Expressive Language Training Provided Patient/Caregiver Instruction Plan of Care,Other Therapy Recommendations Continue with Current Program Suggested Referral Other Other Referrals Behavioral health
== END 2023-08-03 11:10 | disposition home or self-care (01) ==
LOC: SP 14:30
PROVIDERS: Family Provider Physician Assistant; PCP Physician Assistant; Referring Provider Physician Assistant; Visit Provider Physician Assistant
DX: R47.01 Aphasia (principal); I63.9 Cerebral infarction, unspecified
CPT/HCPCS: 92507; 96105